=== PATIENT | female | born 1945 | race Native Hawaiian/Other Pacific Islander ===

== ENCOUNTER 2017-11-07 23:11 | Inpatient (IN) | payer MEDICARE ==
[2017-11-07 23:18] VITALS: BMI 27.2
--- NOTE | 2017-11-07 23:45 | CP.PCM.HP ---
History of Present Illness - History of Present Illness History of Present Illness: CC: s/p TKR; concern for infection and thus on IV abx HPI: 72 y/o female with HTH, DM2, and osteoarthritis among other conditions who is now s/p L TKR at [facility] (POD#3). Patient is in TCU because white count at [facility] remained elevated after surgery, and patient is receiving 5 days of IV Abx. Patient has no c/c at this time. No f/c/n/v/d. No CP/SOB. She does have pain at L hip after operation. ROS: 14 systems reviewed, negative other than HPI MHx: HTN, DM2, gout, arthritis, breast cancer (treated with mastectomy), and ovarian cancer (surg) SHx: breast mastectomy 2005, hysterectomy oophorectomy 1998, left TKR (11/05/17) Allergies: NKDA Medications: As per med rec Fam Hx: Brother GA and CVA ~ 50 y/o, niece with Br cancer Social Hx: Lives at home, no tobacco, no EtOH Surrogate: Present on Admission - Present on Admission Any Indicators Present on Admission: No Past Patient History - Past Medical History & Family History Past Medical History?: Yes - Past Social History Smoking Status: Never Smoked - CARDIAC Hx Hypertension: Yes - HEENT Hx HEENT Problems: Yes Hx Cataracts: Yes (BILAT.) - ENDOCRINE/METABOLIC Hx Diabetes Mellitus Type 2: Yes - HEMATOLOGICAL/ONCOLOGICAL Hx Blood Disorders: Yes Hx Cancer: Yes (OVARIAN; BREAST(LEFT)) Hx Chemotherapy: Yes (POST OVARIAN CANCER) - INTEGUMENTARY Hx Dermatological Problems: Yes Other/Comment: HX: LEFT BREAST CANCER-HAD BILAT. MASECTOMY - MUSCULOSKELETAL/RHEUMATOLOGICAL Hx Arthritis: Yes - GASTROINTESTINAL Hx Gastrointestinal Disorders: Yes Hx Gall Bladder Disease: Yes Hx Hemorrhoids: Yes Other/Comment: HX: DIVERTICULOSIS - GENITOURINARY/GYNECOLOGICAL Hx Genitourinary Disorders: Yes Hx Ovarian Cancer: Yes Hx Urinary Tract Infection: Yes (urinec/s positive dr callaway office sts pt placed on antibiotics repeat) Other/Comment: rpeat dip stick of urine 11/[address]h office dr torrez notified office to send results and clearance - PSYCHIATRIC Hx Substance Use: No - SURGICAL HISTORY Hx Surgeries: Yes Hx Cataract Extraction: Yes (BILAT.) Hx Cholecystectomy: Yes Hx Hysterectomy: Yes Hx Mastectomy: Yes (BILATERAL) Hx Orthopedic Surgery: Yes (SPINAL STENOSIS) - ANESTHESIA Hx Anesthesia: Yes Hx Anesthesia Reactions: No Hx Malignant Hyperthermia: No Meds Allergies/Adverse Reactions: Allergies Allergy/AdvReac Type Severity Reaction Status Date / Time No Known Allergies Allergy Verified 08/18/17 07:39 Physical Exam - Constitutional Appears: No Acute Distress - Head Exam Head Exam: ATRAUMATIC, NORMOCEPHALIC - Eye Exam Eye Exam: EOMI, PERRL - ENT Exam ENT Exam: Mucous Membranes Moist - Neck Exam Neck exam: Positive for: Full Rom - Respiratory Exam Respiratory Exam: Clear to Auscultation Bilateral, NORMAL BREATHING PATTERN - Cardiovascular Exam Cardiovascular Exam: REGULAR RHYTHM, +S1, +S2 - GI/Abdominal Exam GI & Abdominal Exam: Normal Bowel Sounds, Soft - Extremities Exam Additional comments: L knee s/p surgery in brace - Neurological Exam Neurological exam: Alert, CN II-XII Intact, Oriented x3 - Psychiatric Exam Psychiatric exam: Normal Affect, Normal Mood - Skin Skin Exam: Dry, Warm Results - Labs Result Diagrams: 11/08/17 05:30 Assessment & Plan (1) Status post total left knee replacement Assessment and Plan: 72 y/o female s/p L TKR with concern for infection because of elevated WC. 1) s/p TKR, Elevated WC -routine post-op care -pain control per scale -Continue ceftriaxone 1 g daily x 5 days IV -Repeat CBC tmrw -PT/OT -Ortho f/u as directed 2) DM2 -Accucheck ACHS, SSI -Cont metformin -DM diet 3) HTN -- Cont home medications 4) DVT PPx -- SQ Lovenox Status: Acute (2) Leukocytosis Status: Acute (3) DM2 (diabetes mellitus, type 2) Status: Acute (4) HTN (hypertension) Status: Acute (5) DVT prophylaxis Status: Acute
[2017-11-08] MEDS: Insulin Lispro (humaLOG) 100 Units/ml Inj SC SCH ×4 (06:32→22:17)
[2017-11-08 07:04] LABS: BASO % 0.4 % (0.0-2.0); EOS # 0.2 K/uL (0.0-0.7); EOS % 1.7 % (0.0-4.0); HEMOGLOBIN 8.8 g/dL (12.0-16.0); LYMPH % 15.5 % (20.0-40.0); MEAN CELL VOLUME 92.2 fl (81.0-99.0); MEAN CORPUSCULAR HGB CONC 33.6 g/dL (33.0-37.0); MEAN PLATELET VOLUME 10.4 fl (7.2-11.7); MONO # 1.3 K/uL (0.0-0.8); MONO % 9.7 % (0.0-10.0); NEUT # 9.4 K/uL (1.8-7.0); NEUT % 72.7 % (50.0-75.0); RBC 2.85 Mil/uL (3.80-5.20); RED CELL DISTRIBUTION WIDTH 14.1 % (11.5-14.5)
[2017-11-08 07:59] VITALS: RESP 20
[2017-11-08] MEDS: Potassium Chloride 20 mEq ER Tab PO SCH (08:15)
[2017-11-08] MEDS: Enoxaparin 40 mg Syringe SC SCH (08:15)
[2017-11-08] MEDS ORDERED: cefTRIAXone IV 1 gm in Dextros 50 ML BAG IVPB SCH (09:00)
[2017-11-08] MEDS ORDERED: cefTRIAXone IV 1 gm in Dextros 50 ML IVPB SCH (09:00)
[2017-11-08] MEDS: Oxycodone/Acetaminophen 5/325 mg Tab PO PRN (09:57)
[2017-11-08] MEDS: cefTRIAXone IV 1 gm in Dextros 50 ML IVPB SCH (16:00)
[2017-11-09] MEDS: Insulin Lispro (humaLOG) 100 Units/ml Inj SC SCH ×4 (07:37→21:46)
[2017-11-09] MEDS: Oxycodone/Acetaminophen 5/325 mg Tab PO PRN ×2 (09:36→14:02)
[2017-11-09] MEDS: Enoxaparin 40 mg Syringe SC SCH (09:37)
[2017-11-09] MEDS: Potassium Chloride 20 mEq ER Tab PO SCH (09:37)
[2017-11-09] MEDS: cefTRIAXone IV 1 gm in Dextros 50 ML IVPB SCH (17:14)
[2017-11-10] MEDS: Insulin Lispro (humaLOG) 100 Units/ml Inj SC SCH ×4 (06:44→21:45)
[2017-11-10] MEDS: Enoxaparin 40 mg Syringe SC SCH (08:35)
[2017-11-10] MEDS: Oxycodone/Acetaminophen 5/325 mg Tab PO PRN ×2 (08:35→14:51)
[2017-11-10] MEDS: Potassium Chloride 20 mEq ER Tab PO SCH (08:36)
[2017-11-10] MEDS: cefTRIAXone IV 1 gm in Dextros 50 ML IVPB SCH (16:40)
[2017-11-11] MEDS: Insulin Lispro (humaLOG) 100 Units/ml Inj SC SCH ×4 (06:56→22:01)
[2017-11-11] MEDS: Enoxaparin 40 mg Syringe SC SCH (08:14)
[2017-11-11] MEDS: Potassium Chloride 20 mEq ER Tab PO SCH (08:15)
[2017-11-11] MEDS ORDERED: Oxycodone/Acetaminophen 5/325 mg Tab PO PRN ×2 (09:03→09:51)
[2017-11-11 11:28] LABS: BASO % 0.2 % (0.0-2.0); EOS # 0.1 K/uL (0.0-0.7); HEMOGLOBIN 8.7 g/dL (12.0-16.0); LYMPH # 1.8 K/uL (1.0-4.3); LYMPH % 13.9 % (20.0-40.0); MEAN CELL VOLUME 93.2 fl (81.0-99.0); MEAN CORPUSCULAR HEMOGLOBIN 31.2 pg (27.0-31.0); MEAN CORPUSCULAR HGB CONC 33.5 g/dL (33.0-37.0); MONO # 1.1 K/uL (0.0-0.8); MONO % 8.1 % (0.0-10.0); NEUT # 10.1 K/uL (1.8-7.0); NEUT % 76.8 % (50.0-75.0); RBC 2.78 Mil/uL (3.80-5.20); RED CELL DISTRIBUTION WIDTH 14.3 % (11.5-14.5); WHITE BLOOD COUNT 13.1 K/uL (4.8-10.8)
[2017-11-11 11:35] LABS: ALB/GLOB RATIO 0.9 (1.0-2.1); ALBUMIN 3.4 g/dL (3.5-5.0); ALT/SGPT 84 U/L (9-52); AST/SGOT 94 U/L (14-36); BLOOD UREA NITROGEN 19 mg/dl (7-17); CALCIUM 8.4 mg/dL (8.4-10.2); GFR AFRICAN-AMERICAN > 60; GFR NON-AFRICAN AMERICAN > 60
[2017-11-11 13:49] LABS: SQUAMOUS EPITHIAL 5 /hpf (0-5); URINE BACTERIA RARE (<OCC); URINE BILIRUBIN NEGATIVE (NEGATIVE); URINE BLOOD NEGATIVE (NEGATIVE); URINE CLARITY SLIGHTY-CLOUDY (Clear); URINE COLOR YELLOW (YELLOW); URINE GLUCOSE (UA) NEG (Normal); URINE HYALINE CAST 0-2 /hpf (0-2); URINE LEUKOCYTE ESTERASE NEG Leu/uL (Negative); URINE NITRATE NEGATIVE (NEGATIVE); URINE PROTEIN NEGATIVE (NEGATIVE); URINE UROBILINOGEN 0.2-1.0 mg/dL (0.2-1.0)
--- NOTE | 2017-11-11 14:36 | CP.PCM.CON ---
History of Present Illness - History of Present Illness History of Present Illness: 72 year old female with Left total knee replacemnt admitted for TCU with HTN, DM, arthritis, and breast CA Review of Systems - Musculoskeletal Musculoskeletal: Abnormal Gait, Limited Range of Motion Past Patient History - Past Medical History & Family History Past Medical History?: Yes - Past Social History Smoking Status: Never Smoked - CARDIAC Hx Hypertension: Yes - HEENT Hx HEENT Problems: Yes Hx Cataracts: Yes (BILAT.) - ENDOCRINE/METABOLIC Hx Diabetes Mellitus Type 2: Yes (spinal stenosis) - HEMATOLOGICAL/ONCOLOGICAL Hx Blood Disorders: Yes Hx Cancer: Yes (OVARIAN; BREAST(LEFT)) Hx Chemotherapy: Yes (POST OVARIAN CANCER) - INTEGUMENTARY Hx Dermatological Problems: Yes Other/Comment: HX: LEFT BREAST CANCER-HAD BILAT. MASECTOMY - MUSCULOSKELETAL/RHEUMATOLOGICAL Hx Arthritis: Yes - GASTROINTESTINAL Hx Gastrointestinal Disorders: Yes Hx Gall Bladder Disease: Yes Hx Hemorrhoids: Yes Other/Comment: HX: DIVERTICULOSIS - GENITOURINARY/GYNECOLOGICAL Hx Genitourinary Disorders: Yes Hx Ovarian Cancer: Yes Hx Urinary Tract Infection: Yes (urinec/s positive dr callaway office sts pt placed on antibiotics repeat) Other/Comment: rpeat dip stick of urine 11/[address]h office dr torrez notified office to send results and clearance - PSYCHIATRIC Hx Substance Use: No - SURGICAL HISTORY Hx Surgeries: Yes Hx Cataract Extraction: Yes (BILAT.) Hx Cholecystectomy: Yes Hx Hysterectomy: Yes Hx Mastectomy: Yes (BILATERAL) Hx Orthopedic Surgery: Yes (SPINAL STENOSIS) - ANESTHESIA Hx Anesthesia: Yes Hx Anesthesia Reactions: No Hx Malignant Hyperthermia: No Meds Allergies/Adverse Reactions: Allergies Allergy/AdvReac Type Severity Reaction Status Date / Time No Known Allergies Allergy Verified 08/18/17 07:39 - Medications Medications: Current Medications Acetaminophen (Tylenol 325mg Tab) 650 mg PO Q4 PRN PRN Reason: Fever 101 degrees fahrenheit Allopurinol (Zyloprim) 300 mg PO DAILY [facility] Last Admin: 11/11/17 08:15 Dose: 300 mg Atorvastatin Calcium (Lipitor) 10 mg PO DAILY@2100 [facility] Last Admin: 11/10/17 21:45 Dose: 10 mg Docusate Sodium (Colace) 100 mg PO TID [facility] Last Admin: 11/11/17 12:39 Dose: 100 mg Famotidine (Pepcid) 20 mg PO BID [facility] Last Admin: 11/11/17 08:15 Dose: 20 mg Ceftriaxone Sodium (Rocephin Iv 1 Gm Duplex) 50 mls @ 50 mls/hr IVPB DAILY@ 1700 [facility] Last Admin: 11/10/17 16:40 Dose: 50 mls/hr Insulin Human Lispro (Humalog) 0 units SC ACHS [facility] PRN Reason: Protocol Last Admin: 11/11/17 11:48 Dose: Not Given Lactulose (Enulose) 20 gm PO BID PRN PRN Reason: Constipation Last Admin: 11/08/17 13:30 Dose: 20 gm Losartan Potassium (Cozaar) 25 mg PO DAILY [facility] Last Admin: 11/11/17 08:14 Dose: 25 mg Metformin HCl (Glucophage) 500 mg PO DAILY [facility] Last Admin: 11/11/17 08:15 Dose: 500 mg Oxycodone/Acetaminophen (Percocet 5/325 Mg Tab) 1 tab PO Q4 PRN PRN Reason: Pain, moderate (4-7) Stop: 11/14/17 09:04 Oxycodone/Acetaminophen (Percocet 5/325 Mg Tab) 2 tab PO Q4 PRN PRN Reason: Pain, severe (8-10) Stop: 11/14/17 09:52 Last Admin: 11/11/17 10:11 Dose: 2 tab Potassium Chloride (K-Dur 20 Meq Er Tab) 40 meq PO DAILY [facility] Last Admin: 11/11/17 08:15 Dose: 40 meq Physical Exam - Head Exam Head Exam: ATRAUMATIC, NORMAL INSPECTION, NORMOCEPHALIC - Eye Exam Eye Exam: EOMI, Normal appearance, PERRL Pupil Exam: NORMAL ACCOMODATION - ENT Exam ENT Exam: Mucous Membranes Moist, Normal Exam - Neck Exam Neck exam: Positive for: Normal Inspection - Respiratory Exam Respiratory Exam: NORMAL BREATHING PATTERN - Cardiovascular Exam Cardiovascular Exam: REGULAR RHYTHM - GI/Abdominal Exam GI & Abdominal Exam: Normal Bowel Sounds - Rectal Exam Rectal Exam: NORMAL INSPECTION - Exam External exam: NORMAL EXTERNAL EXAM - Extremities Exam Extremities exam: Positive for: normal inspection - Back Exam Back exam: NORMAL INSPECTION - Neurological Exam Neurological exam: Alert, CN II-XII Intact Additional comments: left leg weakness - Psychiatric Exam Psychiatric exam: Normal Affect, Normal Mood - Skin Skin Exam: Dry, Intact Results - Vital Signs Recent Vital Signs: Last Vital Signs Temp 99.7 F H 11/11/17 08:48 Pulse 103 H 11/11/17 08:48 Resp 20 11/11/17 08:48 BP 125/65 11/11/17 08:48 Pulse Ox 97 11/11/17 08:48 - Labs Result Diagrams: 11/11/17 10:42 11/11/17 10:42 Labs: Laboratory Results - last 24 hr 11/10/17 11/10/17 11/11/17 16:13 20:47 06:23 WBC RBC Hgb Hct MCV MCH MCHC RDW Plt Count MPV Neut % (Auto) Lymph % (Auto) [place] % (Auto) Eos % (Auto) Baso % (Auto) Neut # (Auto) Lymph # (Auto) [place] # (Auto) Eos # (Auto) Baso # (Auto) Sodium Potassium Chloride Carbon Dioxide Anion Gap BUN Creatinine Est GFR ( Amer) Est GFR (Non-Af Amer) POC Glucose (mg/dL) 109 142 H 127 H Random Glucose Calcium Total Bilirubin AST ALT Alkaline Phosphatase Total Protein Albumin Globulin Albumin/Globulin Ratio Urine Color Urine Clarity Urine pH Ur Specific [place] Urine Protein Urine Glucose (UA) Urine Ketones Urine Blood Urine Nitrate Urine Bilirubin Urine Urobilinogen Ur Leukocyte Esterase Urine RBC (Auto) Urine Microscopic WBC Ur Squamous Epith Cells Urine Bacteria Hyaline Casts 11/11/17 11/11/17 11/11/17 10:42 10:42 10:59 WBC 13.1 H RBC 2.78 L Hgb 8.7 L Hct 25.9 L MCV 93.2 MCH 31.2 H MCHC 33.5 RDW 14.3 Plt Count 249 D MPV 9.0 Neut % (Auto) 76.8 H Lymph % (Auto) 13.9 L [place] % (Auto) 8.1 Eos % (Auto) 1.0 Baso % (Auto) 0.2 Neut # (Auto) 10.1 H Lymph # (Auto) 1.8 [place] # (Auto) 1.1 H Eos # (Auto) 0.1 Baso # (Auto) 0.0 Sodium 137 Potassium 4.9 Chloride 99 Carbon Dioxide 30 Anion Gap 13 BUN 19 H Creatinine 0.9 Est GFR ( Amer) > 60 Est GFR (Non-Af Amer) > 60 POC Glucose (mg/dL) 121 H Random Glucose 110 H Calcium 8.4 Total Bilirubin 0.8 AST 94 H D ALT 84 H Alkaline Phosphatase 102 Total Protein 7.2 Albumin 3.4 L Globulin 3.8 Albumin/Globulin Ratio 0.9 L Urine Color Urine Clarity Urine pH Ur Specific [place] Urine Protein Urine Glucose (UA) Urine Ketones Urine Blood Urine Nitrate Urine Bilirubin Urine Urobilinogen Ur Leukocyte Esterase Urine RBC (Auto) Urine Microscopic WBC Ur Squamous Epith Cells Urine Bacteria Hyaline Casts 11/11/17 13:20 WBC RBC Hgb Hct MCV MCH MCHC RDW Plt Count MPV Neut % (Auto) Lymph % (Auto) [place] % (Auto) Eos % (Auto) Baso % (Auto) Neut # (Auto) Lymph # (Auto) [place] # (Auto) Eos # (Auto) Baso # (Auto) Sodium Potassium Chloride Carbon Dioxide Anion Gap BUN Creatinine Est GFR ( Amer) Est GFR (Non-Af Amer) POC Glucose (mg/dL) Random Glucose Calcium Total Bilirubin AST ALT Alkaline Phosphatase Total Protein Albumin Globulin Albumin/Globulin Ratio Urine Color Yellow Urine Clarity Slighty-cloudy Urine pH 6.0 Ur Specific [place] 1.011 Urine Protein Negative Urine Glucose (UA) Neg Urine Ketones Negative Urine Blood Negative Urine Nitrate Negative Urine Bilirubin Negative Urine Urobilinogen 0.2-1.0 Ur Leukocyte Esterase Neg Urine RBC (Auto) 3 Urine Microscopic WBC 4 Ur Squamous Epith Cells 5 Urine Bacteria Rare Hyaline Casts 0-2 Assessment & Plan (1) DM2 (diabetes mellitus, type 2) Status: Acute (2) DVT prophylaxis Status: Acute (3) HTN (hypertension) Status: Acute (4) History of gout Status: Acute (5) Leukocytosis Status: Acute (6) Status post total left knee replacement Assessment and Plan: plan for Physical, occupational therapy range of motion, strenghtening, transfers and gait training Status: Acute (7) History of diabetes mellitus Status: Chronic (8) History of hypertension Status: Chronic
--- NOTE | 2017-11-11 14:41 | CP.PCM.PN ---
Subjective - Date & Time of Evaluation Date of Evaluation: 11/10/17 Time of Evaluation: 13:00 - Subjective Subjective: no acute complaints at present Objective - Vital Signs/Intake and Output Vital Signs (last 24 hours): Temp Pulse Resp BP Pulse Ox 99.7 F H 103 H 20 125/65 97 11/11/17 08:48 11/11/17 08:48 11/11/17 08:48 11/11/17 08:48 11/11/17 08:48 - Medications Medications: Current Medications Acetaminophen (Tylenol 325mg Tab) 650 mg PO Q4 PRN PRN Reason: Fever 101 degrees fahrenheit Allopurinol (Zyloprim) 300 mg PO DAILY [facility] Last Admin: 11/11/17 08:15 Dose: 300 mg Atorvastatin Calcium (Lipitor) 10 mg PO DAILY@2100 [facility] Last Admin: 11/10/17 21:45 Dose: 10 mg Docusate Sodium (Colace) 100 mg PO TID [facility] Last Admin: 11/11/17 12:39 Dose: 100 mg Famotidine (Pepcid) 20 mg PO BID [facility] Last Admin: 11/11/17 08:15 Dose: 20 mg Ceftriaxone Sodium (Rocephin Iv 1 Gm Duplex) 50 mls @ 50 mls/hr IVPB DAILY@ 1700 [facility] Last Admin: 11/10/17 16:40 Dose: 50 mls/hr Insulin Human Lispro (Humalog) 0 units SC ACHS [facility] PRN Reason: Protocol Last Admin: 11/11/17 11:48 Dose: Not Given Lactulose (Enulose) 20 gm PO BID PRN PRN Reason: Constipation Last Admin: 11/08/17 13:30 Dose: 20 gm Losartan Potassium (Cozaar) 25 mg PO DAILY [facility] Last Admin: 11/11/17 08:14 Dose: 25 mg Metformin HCl (Glucophage) 500 mg PO DAILY [facility] Last Admin: 11/11/17 08:15 Dose: 500 mg Oxycodone/Acetaminophen (Percocet 5/325 Mg Tab) 1 tab PO Q4 PRN PRN Reason: Pain, moderate (4-7) Stop: 11/14/17 09:04 Oxycodone/Acetaminophen (Percocet 5/325 Mg Tab) 2 tab PO Q4 PRN PRN Reason: Pain, severe (8-10) Stop: 11/14/17 09:52 Last Admin: 11/11/17 10:11 Dose: 2 tab Potassium Chloride (K-Dur 20 Meq Er Tab) 40 meq PO DAILY [facility] Last Admin: 11/11/17 08:15 Dose: 40 meq - Labs Labs: 11/11/17 10:42 11/11/17 10:42 - Head Exam Head Exam: ATRAUMATIC, NORMAL INSPECTION, NORMOCEPHALIC - Eye Exam Eye Exam: EOMI, Normal appearance, PERRL Pupil Exam: NORMAL ACCOMODATION - ENT Exam ENT Exam: Mucous Membranes Moist, Normal Exam - Neck Exam Neck Exam: Normal Inspection - Respiratory Exam Respiratory Exam: NORMAL BREATHING PATTERN - Cardiovascular Exam Cardiovascular Exam: REGULAR RHYTHM - GI/Abdominal Exam GI & Abdominal Exam: Normal Bowel Sounds - Rectal Exam Rectal Exam: NORMAL INSPECTION - Exam External exam: NORMAL EXTERNAL EXAM - Extremities Exam Extremities Exam: Full ROM, Normal Capillary Refill - Back Exam Back Exam: NORMAL INSPECTION - Neurological Exam Neurological Exam: Alert, Awake Neuro motor strength exam: Left Upper Extremity: 4, Right Upper Extremity: 4, Left Lower Extremity: 3, Right Lower Extremity: 4 - Psychiatric Exam Psychiatric exam: Normal Affect, Normal Mood - Skin Skin Exam: Dry, Intact Assessment and Plan (1) DM2 (diabetes mellitus, type 2) Status: Acute (2) DVT prophylaxis Status: Acute (3) HTN (hypertension) Status: Acute (4) History of gout Status: Acute (5) Leukocytosis Status: Acute (6) Status post total left knee replacement Assessment & Plan: quariceps strenghtening transfers and gait to improve strenght and balance Status: Acute (7) History of diabetes mellitus Status: Chronic (8) History of hypertension Status: Chronic
--- NOTE | 2017-11-11 14:43 | CP.PCM.PN ---
Subjective - Date & Time of Evaluation Date of Evaluation: 11/11/17 Time of Evaluation: 09:00 - Subjective Subjective: no acute knee pain Objective - Vital Signs/Intake and Output Vital Signs (last 24 hours): Temp Pulse Resp BP Pulse Ox 99.7 F H 103 H 20 125/65 97 11/11/17 08:48 11/11/17 08:48 11/11/17 08:48 11/11/17 08:48 11/11/17 08:48 - Medications Medications: Current Medications Acetaminophen (Tylenol 325mg Tab) 650 mg PO Q4 PRN PRN Reason: Fever 101 degrees fahrenheit Allopurinol (Zyloprim) 300 mg PO DAILY [facility] Last Admin: 11/11/17 08:15 Dose: 300 mg Atorvastatin Calcium (Lipitor) 10 mg PO DAILY@2100 [facility] Last Admin: 11/10/17 21:45 Dose: 10 mg Docusate Sodium (Colace) 100 mg PO TID [facility] Last Admin: 11/11/17 12:39 Dose: 100 mg Famotidine (Pepcid) 20 mg PO BID [facility] Last Admin: 11/11/17 08:15 Dose: 20 mg Ceftriaxone Sodium (Rocephin Iv 1 Gm Duplex) 50 mls @ 50 mls/hr IVPB DAILY@ 1700 [facility] Last Admin: 11/10/17 16:40 Dose: 50 mls/hr Insulin Human Lispro (Humalog) 0 units SC ACHS [facility] PRN Reason: Protocol Last Admin: 11/11/17 11:48 Dose: Not Given Lactulose (Enulose) 20 gm PO BID PRN PRN Reason: Constipation Last Admin: 11/08/17 13:30 Dose: 20 gm Losartan Potassium (Cozaar) 25 mg PO DAILY [facility] Last Admin: 11/11/17 08:14 Dose: 25 mg Metformin HCl (Glucophage) 500 mg PO DAILY [facility] Last Admin: 11/11/17 08:15 Dose: 500 mg Oxycodone/Acetaminophen (Percocet 5/325 Mg Tab) 1 tab PO Q4 PRN PRN Reason: Pain, moderate (4-7) Stop: 11/14/17 09:04 Oxycodone/Acetaminophen (Percocet 5/325 Mg Tab) 2 tab PO Q4 PRN PRN Reason: Pain, severe (8-10) Stop: 11/14/17 09:52 Last Admin: 11/11/17 10:11 Dose: 2 tab Potassium Chloride (K-Dur 20 Meq Er Tab) 40 meq PO DAILY [facility] Last Admin: 11/11/17 08:15 Dose: 40 meq - Labs Labs: 11/11/17 10:42 11/11/17 10:42 - Head Exam Head Exam: ATRAUMATIC - Eye Exam Eye Exam: EOMI, Normal appearance, PERRL Pupil Exam: NORMAL ACCOMODATION - ENT Exam ENT Exam: Mucous Membranes Moist, Normal Exam - Neck Exam Neck Exam: Full ROM, Normal Inspection - Respiratory Exam Respiratory Exam: Clear to Ausculation Bilateral, NORMAL BREATHING PATTERN - Cardiovascular Exam Cardiovascular Exam: REGULAR RHYTHM - GI/Abdominal Exam GI & Abdominal Exam: Soft, Normal Bowel Sounds - Rectal Exam Rectal Exam: NORMAL INSPECTION - Exam External exam: NORMAL EXTERNAL EXAM - Extremities Exam Extremities Exam: Full ROM, Normal Capillary Refill, Normal Inspection - Back Exam Back Exam: NORMAL INSPECTION - Neurological Exam Neurological Exam: Alert, Awake, Normal Gait Neuro motor strength exam: Left Upper Extremity: 4, Right Upper Extremity: 4, Left Lower Extremity: 3, Right Lower Extremity: 4 - Psychiatric Exam Psychiatric exam: Normal Affect, Normal Mood - Skin Skin Exam: Dry, Intact Assessment and Plan (1) DM2 (diabetes mellitus, type 2) Status: Acute (2) DVT prophylaxis Status: Acute (3) HTN (hypertension) Status: Acute (4) History of gout Status: Acute (5) Leukocytosis Status: Acute (6) Status post total left knee replacement Assessment & Plan: plan for physical, occupational therapy CPM yvette wrap to the knee Status: Acute (7) History of diabetes mellitus Status: Chronic (8) History of hypertension Status: Chronic
[2017-11-11] MEDS: cefTRIAXone IV 1 gm in Dextros 50 ML IVPB SCH (16:49)
--- NOTE | 2017-11-11 17:04 | CP.PCM.PN ---
Subjective - Date & Time of Evaluation Date of Evaluation: 11/11/17 Time of Evaluation: 11:00 - Subjective Subjective: Pt seen and examined. Complained of feeling dizzy when getting up. Objective - Vital Signs/Intake and Output Vital Signs (last 24 hours): Temp Pulse Resp BP Pulse Ox 97.5 F L 96 H 20 97/56 L 98 11/11/17 16:12 11/11/17 16:12 11/11/17 16:12 11/11/17 16:12 11/11/17 16:12 - Medications Medications: Current Medications Acetaminophen (Tylenol 325mg Tab) 650 mg PO Q4 PRN PRN Reason: Fever 101 degrees fahrenheit Allopurinol (Zyloprim) 300 mg PO DAILY [facility] Last Admin: 11/11/17 08:15 Dose: 300 mg Atorvastatin Calcium (Lipitor) 10 mg PO DAILY@2100 [facility] Last Admin: 11/10/17 21:45 Dose: 10 mg Docusate Sodium (Colace) 100 mg PO TID [facility] Last Admin: 11/11/17 16:49 Dose: 100 mg Famotidine (Pepcid) 20 mg PO BID [facility] Last Admin: 11/11/17 16:49 Dose: 20 mg Ceftriaxone Sodium (Rocephin Iv 1 Gm Duplex) 50 mls @ 50 mls/hr IVPB DAILY@ 1700 [facility] Last Admin: 11/11/17 16:49 Dose: 50 mls/hr Insulin Human Lispro (Humalog) 0 units SC ACHS [facility] PRN Reason: Protocol Last Admin: 11/11/17 16:23 Dose: Not Given Lactulose (Enulose) 20 gm PO BID PRN PRN Reason: Constipation Last Admin: 11/08/17 13:30 Dose: 20 gm Losartan Potassium (Cozaar) 25 mg PO DAILY [facility] Last Admin: 11/11/17 08:14 Dose: 25 mg Metformin HCl (Glucophage) 500 mg PO DAILY [facility] Last Admin: 11/11/17 08:15 Dose: 500 mg Oxycodone/Acetaminophen (Percocet 5/325 Mg Tab) 1 tab PO Q4 PRN PRN Reason: Pain, moderate (4-7) Stop: 11/14/17 09:04 Oxycodone/Acetaminophen (Percocet 5/325 Mg Tab) 2 tab PO Q4 PRN PRN Reason: Pain, severe (8-10) Stop: 11/14/17 09:52 Last Admin: 11/11/17 10:11 Dose: 2 tab Potassium Chloride (K-Dur 20 Meq Er Tab) 40 meq PO DAILY [facility] Last Admin: 11/11/17 08:15 Dose: 40 meq - Labs Labs: 11/11/17 10:42 11/11/17 10:42 - Constitutional Appears: No Acute Distress - Head Exam Head Exam: ATRAUMATIC - Eye Exam Eye Exam: absent: Scleral icterus - ENT Exam ENT Exam: Mucous Membranes Moist - Neck Exam Neck Exam: absent: Meningismus - Respiratory Exam Respiratory Exam: absent: Rhonchi, Wheezes, Respiratory Distress - Cardiovascular Exam Cardiovascular Exam: REGULAR RHYTHM, +S1, +S2 - GI/Abdominal Exam GI & Abdominal Exam: Soft. absent: Tenderness - Rectal Exam Rectal Exam: Deferred - Back Exam Back Exam: absent: tenderness - Neurological Exam Neurological Exam: Alert, Oriented x3 - Psychiatric Exam Psychiatric exam: Normal Affect - Skin Skin Exam: Dry, Intact Assessment and Plan - Assessment and Plan (Free Text) Assessment: 72 female with history of DM2, HTN, Breast Ca and Ovarian Ca had left TKR at [facility] [place] on 11/05/2017 after failing conservative management of arthritis of the left knee. She was empirically treated with IV Rocephin because of the persistent elevation of the WBC although it was greatly reduced and patient was asymptomatic. 1. Post left TKR POD# 6 wound on left knee clean without sign of inflammation pain very tolerable continue PT/OT 2. Postural Hypotension monitor BP hold therapy when symptomatic or SBP below 100 DC Losartan 3. Leukocytosis repeat blood culture continue Rocephin urinalysis 4. Elevated LFTs liver sonogram hepatitis profile in am DC statin 5. DM2 BS controlled continue low dose Metformin 6. HTN BP on the low side Losartan DC
--- NOTE | 2017-11-11 17:11 | CARD ---
APPROVED REPORT EKG Measurement Heart [id number] <Conclusion> Normal sinus rhythm Normal ECG
[2017-11-12 06:29] LABS: BASO % 0.4 % (0.0-2.0); EOS # 0.3 K/uL (0.0-0.7); EOS % 2.9 % (0.0-4.0); HEMOGLOBIN 8.3 g/dL (12.0-16.0); LYMPH # 2.1 K/uL (1.0-4.3); LYMPH % 18.8 % (20.0-40.0); MEAN CELL VOLUME 92.8 fl (81.0-99.0); MEAN CORPUSCULAR HEMOGLOBIN 30.6 pg (27.0-31.0); MEAN PLATELET VOLUME 9.2 fl (7.2-11.7); MONO # 1.1 K/uL (0.0-0.8); MONO % 10.4 % (0.0-10.0); NEUT # 7.4 K/uL (1.8-7.0); NEUT % 67.5 % (50.0-75.0); RBC 2.71 Mil/uL (3.80-5.20); RED CELL DISTRIBUTION WIDTH 14.3 % (11.5-14.5)
[2017-11-12] MEDS: Insulin Lispro (humaLOG) 100 Units/ml Inj SC SCH ×4 (08:01→21:54)
[2017-11-12] MEDS: Enoxaparin 40 mg Syringe SC SCH (10:14)
[2017-11-12] MEDS: Potassium Chloride 20 mEq ER Tab PO SCH (10:14)
--- NOTE | 2017-11-12 12:49 | CP.PCM.PN ---
Subjective - Date & Time of Evaluation Date of Evaluation: 11/12/17 Time of Evaluation: 10:30 - Subjective Subjective: no acute complaints Objective - Vital Signs/Intake and Output Vital Signs (last 24 hours): Temp Pulse Resp BP Pulse Ox 98.1 F 105 H 20 120/62 98 11/12/17 08:02 11/12/17 08:02 11/12/17 08:02 11/12/17 08:02 11/12/17 08:02 - Medications Medications: Current Medications Acetaminophen (Tylenol 325mg Tab) 650 mg PO Q4 PRN PRN Reason: Fever 101 degrees fahrenheit Allopurinol (Zyloprim) 300 mg PO DAILY [facility] Last Admin: 11/12/17 10:14 Dose: 300 mg Docusate Sodium (Colace) 100 mg PO TID [facility] Last Admin: 11/12/17 10:15 Dose: 100 mg Enoxaparin Sodium (Lovenox) 40 mg SC DAILY [facility] PRN Reason: Protocol Last Admin: 11/12/17 10:14 Dose: 40 mg Famotidine (Pepcid) 20 mg PO BID [facility] Last Admin: 11/12/17 10:14 Dose: 20 mg Ceftriaxone Sodium (Rocephin Iv 1 Gm Duplex) 50 mls @ 50 mls/hr IVPB DAILY@ 1700 [facility] Last Admin: 11/11/17 16:49 Dose: 50 mls/hr Insulin Human Lispro (Humalog) 0 units SC ACHS [facility] PRN Reason: Protocol Last Admin: 11/12/17 08:01 Dose: Not Given Lactulose (Enulose) 20 gm PO BID PRN PRN Reason: Constipation Last Admin: 11/08/17 13:30 Dose: 20 gm Metformin HCl (Glucophage) 500 mg PO DAILY [facility] Last Admin: 11/12/17 10:15 Dose: 500 mg Oxycodone/Acetaminophen (Percocet 5/325 Mg Tab) 1 tab PO Q4 PRN PRN Reason: Pain, moderate (4-7) Stop: 11/14/17 09:04 Oxycodone/Acetaminophen (Percocet 5/325 Mg Tab) 2 tab PO Q4 PRN PRN Reason: Pain, severe (8-10) Stop: 11/14/17 09:52 Last Admin: 11/11/17 10:11 Dose: 2 tab Potassium Chloride (K-Dur 20 Meq Er Tab) 40 meq PO DAILY [facility] Last Admin: 11/12/17 10:14 Dose: 40 meq - Labs Labs: 11/12/17 05:40 11/11/17 10:42 - Head Exam Head Exam: ATRAUMATIC, NORMAL INSPECTION, NORMOCEPHALIC - Eye Exam Eye Exam: EOMI, Normal appearance, PERRL Pupil Exam: NORMAL ACCOMODATION - ENT Exam ENT Exam: Mucous Membranes Moist, Normal Exam - Neck Exam Neck Exam: Full ROM, Normal Inspection - Respiratory Exam Respiratory Exam: NORMAL BREATHING PATTERN - Cardiovascular Exam Cardiovascular Exam: REGULAR RHYTHM - GI/Abdominal Exam GI & Abdominal Exam: Soft, Normal Bowel Sounds - Rectal Exam Rectal Exam: NORMAL INSPECTION - Exam Exam: NORMAL INSPECTION - Extremities Exam Extremities Exam: Full ROM, Normal Capillary Refill - Back Exam Back Exam: NORMAL INSPECTION - Neurological Exam Neurological Exam: Alert, Awake Neuro motor strength exam: Left Upper Extremity: 4, Right Upper Extremity: 4, Left Lower Extremity: 3, Right Lower Extremity: 4 - Psychiatric Exam Psychiatric exam: Normal Affect, Normal Mood - Skin Skin Exam: Dry, Intact Assessment and Plan (1) DM2 (diabetes mellitus, type 2) Status: Acute (2) DVT prophylaxis Status: Acute (3) HTN (hypertension) Status: Acute (4) History of gout Status: Acute (5) Leukocytosis Status: Acute (6) Status post total left knee replacement Assessment & Plan: plan for physical, occupational therapy Status: Acute (7) History of diabetes mellitus Status: Chronic (8) History of hypertension Status: Chronic
[2017-11-12 13:02] LABS: HEPATITIS B SURFACE AG Negative (NEGATIVE)
[2017-11-12 13:08] LABS: HEPATITIS B CORE AB NEGATIVE (NEGATIVE)
[2017-11-12 13:19] LABS: HEPATITIS C ANTIBODY NEGATIVE (NEGATIVE)
[2017-11-12 13:21] LABS: HEPATITIS A IGM NEGATIVE (NEGATIVE)
--- NOTE | 2017-11-12 14:43 | CP.PCM.PN ---
Subjective - Date & Time of Evaluation Date of Evaluation: 11/12/17 Time of Evaluation: 14:41 - Subjective Subjective: Patient states pain is well controlled. She is able to use walker independently to bathroom. Tolerating PT well. No new complaints. Objective - Vital Signs/Intake and Output Vital Signs (last 24 hours): Temp Pulse Resp BP Pulse Ox 98.1 F 105 H 20 120/62 98 11/12/17 08:02 11/12/17 08:02 11/12/17 08:02 11/12/17 08:02 11/12/17 08:02 - Medications Medications: Current Medications Acetaminophen (Tylenol 325mg Tab) 650 mg PO Q4 PRN PRN Reason: Fever 101 degrees fahrenheit Allopurinol (Zyloprim) 300 mg PO DAILY [facility] Last Admin: 11/12/17 10:14 Dose: 300 mg Docusate Sodium (Colace) 100 mg PO TID [facility] Last Admin: 11/12/17 12:57 Dose: Not Given Enoxaparin Sodium (Lovenox) 40 mg SC DAILY [facility] PRN Reason: Protocol Last Admin: 11/12/17 10:14 Dose: 40 mg Famotidine (Pepcid) 20 mg PO BID [facility] Last Admin: 11/12/17 10:14 Dose: 20 mg Ceftriaxone Sodium (Rocephin Iv 1 Gm Duplex) 50 mls @ 50 mls/hr IVPB DAILY@ 1700 [facility] Last Admin: 11/11/17 16:49 Dose: 50 mls/hr Insulin Human Lispro (Humalog) 0 units SC ACHS [facility] PRN Reason: Protocol Last Admin: 11/12/17 11:45 Dose: 3 units Lactulose (Enulose) 20 gm PO BID PRN PRN Reason: Constipation Last Admin: 11/08/17 13:30 Dose: 20 gm Metformin HCl (Glucophage) 500 mg PO DAILY [facility] Last Admin: 11/12/17 10:15 Dose: 500 mg Oxycodone/Acetaminophen (Percocet 5/325 Mg Tab) 1 tab PO Q4 PRN PRN Reason: Pain, moderate (4-7) Stop: 11/14/17 09:04 Oxycodone/Acetaminophen (Percocet 5/325 Mg Tab) 2 tab PO Q4 PRN PRN Reason: Pain, severe (8-10) Stop: 11/14/17 09:52 Last Admin: 11/11/17 10:11 Dose: 2 tab Potassium Chloride (K-Dur 20 Meq Er Tab) 40 meq PO DAILY [facility] Last Admin: 11/12/17 10:14 Dose: 40 meq - Labs Labs: 11/12/17 05:40 11/11/17 10:42 - Extremities Exam Additional comments: Dressing changed. +swelling and ecchymosis to knee, ioncision intact, dry, no erythema. +ROM ankle/toes, sensation intact, encouraged extension of knee, calves soft NT neg homans +DP/PT pulses Assessment and Plan (1) Status post total left knee replacement Assessment & Plan: POD#7 s/p left TKR cont PT/OT VTE proph dressing changes d/w Dr. Hoyt, agrees with above Status: Acute
[2017-11-12] MEDS: cefTRIAXone IV 1 gm in Dextros 50 ML IVPB SCH (17:40)
[2017-11-13 06:44] LABS: HEMOGLOBIN 8.4 g/dL (12.0-16.0); MEAN CELL VOLUME 93.1 fl (81.0-99.0); MEAN CORPUSCULAR HEMOGLOBIN 31.2 pg (27.0-31.0); MEAN CORPUSCULAR HGB CONC 33.5 g/dL (33.0-37.0); RBC 2.7 Mil/uL (3.80-5.20); RED CELL DISTRIBUTION WIDTH 14.4 % (11.5-14.5); WHITE BLOOD COUNT 10.9 K/uL (4.8-10.8)
[2017-11-13] MEDS: Insulin Lispro (humaLOG) 100 Units/ml Inj SC SCH ×4 (07:33→21:30)
[2017-11-13] MEDS: Potassium Chloride 20 mEq ER Tab PO SCH (08:15)
[2017-11-13] MEDS: Enoxaparin 40 mg Syringe SC SCH (08:15)
--- NOTE | 2017-11-13 13:03 | CP.PCM.PN ---
Subjective - Date & Time of Evaluation Date of Evaluation: 11/13/17 Time of Evaluation: 13:01 - Subjective Subjective: pt doing well no complaints participating in PT well HD stable NAD Objective - Vital Signs/Intake and Output Vital Signs (last 24 hours): Temp Pulse Resp BP Pulse Ox 98.1 F 98 H 20 125/61 99 11/13/17 08:05 11/13/17 10:22 11/13/17 08:05 11/13/17 08:05 11/13/17 08:05 Vitals Reviewed GEN: WDWN, ALERT, COOPERATIVE HEENT: NCAT, PERRL, EOMI HEART: RRR, +S1S2, NO MRG LUNG: CTAB, NO WRR ABD: SOFT, NT, ND, NO HSM, NO MASSES EXT: NORMAL PEDAL PULSES, GOOD CAPILLARY REFILL NEURO: AAOX3 SKIN: WARM, DRY PSYCH: NORMAL MOOD, NORMAL AFFECT - Medications Medications: Current Medications Acetaminophen (Tylenol 325mg Tab) 650 mg PO Q4 PRN PRN Reason: Fever 101 degrees fahrenheit Allopurinol (Zyloprim) 300 mg PO DAILY [facility] Last Admin: 11/13/17 08:15 Dose: 300 mg Docusate Sodium (Colace) 100 mg PO TID [facility] Last Admin: 11/13/17 12:14 Dose: Not Given Enoxaparin Sodium (Lovenox) 40 mg SC DAILY [facility] PRN Reason: Protocol Last Admin: 11/13/17 08:15 Dose: 40 mg Famotidine (Pepcid) 20 mg PO BID [facility] Last Admin: 11/13/17 08:15 Dose: 20 mg Insulin Human Lispro (Humalog) 0 units SC [facility] PRN Reason: Protocol Last Admin: 11/13/17 10:59 Dose: Not Given Lactulose (Enulose) 20 gm PO BID PRN PRN Reason: Constipation Last Admin: 11/08/17 13:30 Dose: 20 gm Metformin HCl (Glucophage) 500 mg PO DAILY [facility] Last Admin: 11/13/17 08:15 Dose: 500 mg Oxycodone/Acetaminophen (Percocet 5/325 Mg Tab) 1 tab PO Q4 PRN PRN Reason: Pain, moderate (4-7) Stop: 11/14/17 09:04 Oxycodone/Acetaminophen (Percocet 5/325 Mg Tab) 2 tab PO Q4 PRN PRN Reason: Pain, severe (8-10) Stop: 11/14/17 09:52 Last Admin: 11/11/17 10:11 Dose: 2 tab Potassium Chloride (K-Dur 20 Meq Er Tab) 40 meq PO DAILY [facility] Last Admin: 11/13/17 08:15 Dose: 40 meq - Labs Labs: 11/13/17 06:10 11/11/17 10:42 Assessment and Plan - Assessment and Plan (Free Text) Plan: 72 female with history of DM2, HTN, Breast Ca and Ovarian Ca had left TKR at [facility] on 11/05/2017 after failing conservative management of arthritis of the left knee. She was empirically treated with IV Rocephin because of the persistent elevation of the WBC although it was greatly reduced and patient was asymptomatic. 1. Post left TKR wound on left knee clean without sign of inflammation pain very tolerable continue PT/OT Ortho consult appreciated 2. Postural Hypotension monitor BP hold therapy when symptomatic or SBP below 100 DC Losartan 3. Leukocytosis repeat blood culture continue Rocephin urinalysis 4. Elevated LFTs liver sonogram hepatitis profile in am DC statin 5. DM2 BS controlled continue low dose Metformin 6. HTN BP on the low side Losartan DC
[2017-11-14] MEDS: Insulin Lispro (humaLOG) 100 Units/ml Inj SC SCH ×4 (06:57→22:05)
[2017-11-14] MEDS: Potassium Chloride 20 mEq ER Tab PO SCH (08:18)
[2017-11-14] MEDS: Enoxaparin 40 mg Syringe SC SCH (08:18)
--- NOTE | 2017-11-14 19:52 | PN ---
PHYSIATRY PROGRESS NOTE DATE: SUBJECTIVE: The patient is feeling fine. A 72-year-old female in no acute complains of knee pain. PHYSICAL EXAMINATION: VITAL SIGNS: Stable. NECK: Supple. CHEST: Symmetrical. HEART: Sounds S1 and S2. ABDOMEN: Abdominal area is benign. EXTREMITIES: No clubbing, cyanosis or edema. IMPRESSION: Left total knee replacement, hypertension, diabetes, arthritis, breast cancer, and knee incisional area sealing with jos in place. PLAN: The patient is for discharge planning. Discussed with the patient regarding management of the knee incisional area, to followup with Orthopedic physician after discharge. Golden Castañeda MD
[2017-11-15] MEDS: Insulin Lispro (humaLOG) 100 Units/ml Inj SC SCH ×2 (06:46→12:14)
[2017-11-15 08:55] VITALS: BP 134/70; PULSE 84; TEMP 98.4; O2SAT 99
[2017-11-15] MEDS: Potassium Chloride 20 mEq ER Tab PO SCH (09:10)
[2017-11-15] MEDS: Enoxaparin 40 mg Syringe SC SCH (09:11)
--- NOTE | 2017-11-15 12:53 | CP.PCM.DIS ---
Provider - Provider Date of Admission: 11/07/17 23:19 Attending physician: Mercedes Mendoza MD Time Spent in preparation of Discharge (in minutes): 30 Diagnosis - Discharge Diagnosis (1) Status post total left knee replacement Status: Acute Hospital Course - Lab Results Lab Results: Micro Results 11/11/17 17:05 Blood-Venous Blood Culture - Preliminary NO GROWTH AFTER 3 DAYS 11/11/17 16:55 Blood-Venous Blood Culture - Preliminary NO GROWTH AFTER 3 DAYS Most Recent Lab Values WBC 10.9 K/uL (4.8-10.8) H 11/13/17 06:10 RBC 2.70 Mil/uL (3.80-5.20) L 11/13/17 06:10 Hgb 8.4 g/dL (12.0-16.0) L 11/13/17 06:10 Hct 25.1 % (34.0-47.0) L 11/13/17 06:10 MCV 93.1 fl (81.0-99.0) 11/13/17 06:10 MCH 31.2 pg (27.0-31.0) H 11/13/17 06:10 MCHC 33.5 g/dL (33.0-37.0) 11/13/17 06:10 RDW 14.4 % (11.5-14.5) 11/13/17 06:10 Plt Count 273 K/uL (130-400) 11/13/17 06:10 MPV 9.2 fl (7.2-11.7) 11/12/17 05:40 Neut % (Auto) 67.5 % (50.0-75.0) 11/12/17 05:40 Lymph % (Auto) 18.8 % (20.0-40.0) L 11/12/17 05:40 [place] % (Auto) 10.4 % (0.0-10.0) H 11/12/17 05:40 Eos % (Auto) 2.9 % (0.0-4.0) 11/12/17 05:40 Baso % (Auto) 0.4 % (0.0-2.0) 11/12/17 05:40 Neut # (Auto) 7.4 K/uL (1.8-7.0) H 11/12/17 05:40 Lymph # (Auto) 2.1 K/uL (1.0-4.3) 11/12/17 05:40 [place] # (Auto) 1.1 K/uL (0.0-0.8) H 11/12/17 05:40 Eos # (Auto) 0.3 K/uL (0.0-0.7) 11/12/17 05:40 Baso # (Auto) 0.0 K/uL (0.0-0.2) 11/12/17 05:40 Sodium 137 mmol/l (132-148) 11/11/17 10:42 Potassium 4.9 MMOL/L (3.6-5.0) 11/11/17 10:42 Chloride 99 mmol/L (98-107) 11/11/17 10:42 Carbon Dioxide 30 mmol/L (22-30) 11/11/17 10:42 Anion Gap 13 (10-20) 11/11/17 10:42 BUN 19 mg/dl (7-17) H 11/11/17 10:42 Creatinine 0.9 mg/dl (0.7-1.2) 11/11/17 10:42 Est GFR ( Amer) > 60 11/11/17 10:42 Est GFR (Non-Af Amer) > 60 11/11/17 10:42 POC Glucose (mg/dL) 111 mg/dL (65-110) H 11/15/17 10:58 Random Glucose 110 mg/dL (65-105) H 11/11/17 10:42 Calcium 8.4 mg/dL (8.4-10.2) 11/11/17 10:42 Total Bilirubin 0.8 mg/dl (0.2-1.3) 11/11/17 10:42 AST 94 U/L (14-36) H D 11/11/17 10:42 ALT 84 U/L (9-52) H 11/11/17 10:42 Alkaline Phosphatase 102 U/L (38-126) 11/11/17 10:42 Total Protein 7.2 G/DL (6.3-8.2) 11/11/17 10:42 Albumin 3.4 g/dL (3.5-5.0) L 11/11/17 10:42 Globulin 3.8 gm/dL (2.2-3.9) 11/11/17 10:42 Albumin/Globulin Ratio 0.9 (1.0-2.1) L 11/11/17 10:42 Urine Color Yellow (YELLOW) 11/11/17 13:20 Urine Clarity Slighty-cloudy (Clear) 11/11/17 13:20 Urine pH 6.0 (5.0-8.0) 11/11/17 13:20 Ur Specific [place] 1.011 (1.003-1.030) 11/11/17 13:20 Urine Protein Negative mg/dL (NEGATIVE) 11/11/17 13:20 Urine Glucose (UA) Neg mg/dL (Normal) 11/11/17 13:20 Urine Ketones Negative mg/dL (NEGATIVE) 11/11/17 13:20 Urine Blood Negative (NEGATIVE) 11/11/17 13:20 Urine Nitrate Negative (NEGATIVE) 11/11/17 13:20 Urine Bilirubin Negative (NEGATIVE) 11/11/17 13:20 Urine Urobilinogen 0.2-1.0 mg/dL (0.2-1.0) 11/11/17 13:20 Ur Leukocyte Esterase Neg Maximiliano/uL (Negative) 11/11/17 13:20 Urine RBC (Auto) 3 /hpf (0-3) 11/11/17 13:20 Urine Microscopic WBC 4 /hpf (0-5) 11/11/17 13:20 Ur Squamous Epith Cells 5 /hpf (0-5) 11/11/17 13:20 Urine Bacteria Rare (<OCC) 11/11/17 13:20 Hyaline Casts 0-2 /hpf (0-2) 11/11/17 13:20 Hepatitis A IgM Ab Negative (NEGATIVE) 11/11/17 18:59 Hep Bs Antigen Negative (NEGATIVE) 11/11/17 18:59 Hep B Core IgM Ab Negative (NEGATIVE) 11/11/17 18:59 Hepatitis C Antibody Negative (NEGATIVE) 11/11/17 18:59 - Hospital Course Hospital Course: 72 female with history of DM2, HTN, Breast Ca and Ovarian Ca had left TKR at [facility] on 11/05/2017 after failing conservative management of arthritis of the left knee. She was empirically treated with IV Rocephin because of the persistent elevation of the WBC although it was greatly reduced and patient was asymptomatic. Participated [facility] PT well. patient stable to be discharged home with follow up PCP and Ortho in one week. 1. Post left TKR wound on left knee clean without sign of inflammation pain very tolerable continue PT/OT Ortho consult appreciated 2. Postural Hypotension monitor BP hold therapy when symptomatic or SBP below 100 DC Losartan 3. Leukocytosis repeat blood culture continue Rocephin urinalysis 4. Elevated LFTs liver sonogram hepatitis profile in am DC statin 5. DM2 BS controlled continue low dose Metformin 6. HTN BP on the low side Losartan DC Discharge Exam - Head Exam Head Exam: ATRAUMATIC Additional comments: Vitals Reviewed GEN: WDWN, ALERT, COOPERATIVE HEENT: NCAT, PERRL, EOMI HEART: RRR, +S1S2, NO MRG LUNG: CTAB, NO WRR ABD: SOFT, NT, ND, NO HSM, NO MASSES EXT: NORMAL PEDAL PULSES, GOOD CAPILLARY REFILL NEURO: AAOX3 SKIN: WARM, DRY PSYCH: NORMAL MOOD, NORMAL AFFECT Discharge Plan - Discharge Medications Prescriptions: Allopurinol [Zyloprim] 300 mg PO DAILY #30 tab Docusate [Colace] 100 mg PO TID #90 cap Enoxaparin [Lovenox] 40 mg SC DAILY #30 syr metFORMIN [glucOPHAGE] 500 mg PO DAILY #30 tab oxyCODONE/Acetaminophen [Percocet 5/325 mg Tab] 1 tab PO Q4 PRN #20 tab PRN Reason: Pain, Moderate (4-7) Simvastatin 20 mg PO HS #30 tablet - Follow Up Plan Condition: GOOD Disposition: HOME/ ROUTINE Instructions: Urinary Tract Infection in Women (DC), Precautions after Total Joint Replacement Surgery (DC), Fall Prevention (DC), Knee Replacement (DC) Additional Instructions: Appointment with Maria Alejandra 12/02/17 at 10 am and 11/18/2017 1030 am Follow up with primary MD Sonja rosariog one week
== END 2017-11-15 02:05 | disposition home or self-care (01) | DRG 561 ==
LOC: H.TCU 23:19
PROVIDERS: ADMIT Internal Medicine; ATTEND Internal Medicine
PROC: F08Z1FZ Dressing Techniques Treatment using Assistive, Adaptive, Supportive or Protective Equipment (ICD-10-PCS; principal; 2017-11-07)
PROC: F07Z9FZ Gait Training/Functional Ambulation Treatment using Assistive, Adaptive, Supportive or Protective Equipment (ICD-10-PCS; 2017-11-07)
PROC: F07L6FZ Therapeutic Exercise Treatment of Musculoskeletal System - Lower Back / Lower Extremity using Assistive, Adaptive, Supportive or Protective Equipment (ICD-10-PCS; 2017-11-07)
DX: Z47.1 Aftercare following joint replacement surgery (principal); E11.9 Type 2 diabetes mellitus without complications; D72.829 Elevated white blood cell count, unspecified; I10 Essential (primary) hypertension; I95.1 Orthostatic hypotension; M10.9 Gout, unspecified; Z96.652 Presence of left artificial knee joint; Z85.3 Personal history of malignant neoplasm of breast; Z85.43 Personal history of malignant neoplasm of ovary; R79.89 Other specified abnormal findings of blood chemistry; R53.1 Weakness

== ENCOUNTER 2018-08-07 15:10 | Inpatient (IN) | payer MEDICARE ==
[2018-08-07 20:41] VITALS: BMI 26.4
[2018-08-07] MEDS ORDERED: Oxycodone/Acetaminophen 5/325 mg Tab PO PRN (21:59)
[2018-08-07] MEDS ORDERED: Enoxaparin 40 mg Syringe SC SCH (22:00)
[2018-08-07] MEDS ORDERED: Ergocalciferol 50,000 Intl Units Cap PO SCH (22:00)
--- NOTE | 2018-08-07 22:10 | CP.PCM.HP ---
History of Present Illness - History of Present Illness History of Present Illness: Orthopedic: Dr Julio Bueno Chief complaint: Right Knee replacement The Patient was seen and examined in the TCU HPI: The hx was obtained from the Patient and after review of the medical chart. She is 72 years with a hx of DM II, HTN, breast and ovarian cancer, who was admitted at the [facility] on the 08/05/18 for a Right total Knee replacement. done on 08/06/18. She is transferred to the [facility] for continued treatment and Physical Therapy. PMH: HTN, DM II, ovarian ca s/p hysterectomy oophorectomy and Left breast ca s/p B mastectomy, cataracts, gout; Diverticulosis; Spinal Stenosis PSH: Cholecystectomy; Hysterectomy; bilateral Mastectomy; cataract surgery SH: No illegal drug use; No Alcohol; No tobacco FH: Brother with [place] and Stroke after 50 years of age; Niece with brest cancer allergies: NKDA Medication: NKDA Present on Admission - Present on Admission Any Indicators Present on Admission: No History of DVT/PE: No History of Uncontrolled Diabetes: No Urinary Catheter: No Decubitus Ulcer Present: No Review of Systems - Constitutional Constitutional: absent: Anorexia, Chills, Fever, Headache - EENT Eyes: absent: Blurred Vision, Diplopia, Floaters, Requires Corrective Lenses Ears: absent: Decreased Hearing, Ear Discharge, Tinnitus Nose/Mouth/Throat: absent: Epistaxis, Nasal Congestion, Nasal Discharge, Sinus Pain, Sinus Pressure - Cardiovascular Cardiovascular: absent: Chest Pain, Dyspnea, Edema - Respiratory Respiratory: absent: Cough, Dyspnea, Wheezing, Stridor - Gastrointestinal Gastrointestinal: absent: Abdominal Pain, Diarrhea, Nausea, Vomiting - Genitourinary Genitourinary: absent: Dysuria, Flank Pain, Urinary Frequency - Musculoskeletal Musculoskeletal: Arthralgias Additional comments: Right knee pain - Integumentary Integumentary: absent: Pruritus, Rash - Neurological Neurological: absent: Confusion, Dizziness, Headaches - Psychiatric Psychiatric: absent: Anxiety, Confusion - Endocrine Endocrine: absent: Palpitations, Polydipsia, Polyphagia, Polyuria - Hematologic/Lymphatic Hematologic: absent: Easy Bleeding, Easy Bruising Past Patient History - Past Medical History & Family History Past Medical History?: Yes - Past Social History Smoking Status: Never Smoked Chewing Tobacco Use: No Cigar Use: No Alcohol: None Drugs: Denies - CARDIAC Hx Cardiac Disorders: Yes Hx Hypercholesterolemia: Yes Hx Hypertension: Yes - PULMONARY Hx Respiratory Disorders: No - NEUROLOGICAL Hx Neurological Disorder: No - HEENT Hx HEENT Problems: Yes Hx Cataracts: Yes (BILAT.) - RENAL Hx Chronic Kidney Disease: No - ENDOCRINE/METABOLIC Hx Diabetes Mellitus Type 2: Yes - HEMATOLOGICAL/ONCOLOGICAL Hx Blood Disorders: Yes Hx AIDS: No Hx Cancer: Yes (OVARIAN; BREAST(LEFT)) Hx Chemotherapy: Yes (POST OVARIAN CANCER) Hx Human Immunodeficiency Virus (HIV): No - INTEGUMENTARY Hx Dermatological Problems: Yes - MUSCULOSKELETAL/RHEUMATOLOGICAL Hx Musculoskeletal Disorders: Yes Hx Arthritis: Yes Hx Degenerative Joint Disease: Yes Hx Falls: Yes (Fell 2 yrs ago) Hx Gout: Yes Hx Spinal Stenosis: Yes - GASTROINTESTINAL Hx Gastrointestinal Disorders: Yes Hx Gall Bladder Disease: Yes Hx Hemorrhoids: Yes Other/Comment: HX: DIVERTICULOSIS - GENITOURINARY/GYNECOLOGICAL Hx Genitourinary Disorders: Yes Hx Ovarian Cancer: Yes Hx Urinary Tract Infection: Yes - PSYCHIATRIC Hx Psychophysiologic Disorder: No Hx Substance Use: No - SURGICAL HISTORY Hx Surgeries: Yes Hx Cataract Extraction: Yes (BILAT.) Hx Cholecystectomy: Yes Hx Hysterectomy: Yes Hx Joint Replacement: Yes (LEFT KNEE) Hx Mastectomy: Yes (BILATERAL) Hx Orthopedic Surgery: Yes (SPINAL STENOSIS) - ANESTHESIA Hx Anesthesia: Yes Hx Anesthesia Reactions: No Hx Malignant Hyperthermia: No Meds Allergies/Adverse Reactions: Allergies Allergy/AdvReac Type Severity Reaction Status Date / Time No Known Allergies Allergy Verified 08/18/17 07:39 Physical Exam - Constitutional Appears: No Acute Distress - Head Exam Head Exam: ATRAUMATIC, NORMAL INSPECTION, NORMOCEPHALIC - Eye Exam Eye Exam: EOMI Pupil Exam: NORMAL ACCOMODATION, PERRL - ENT Exam ENT Exam: Mucous Membranes Moist, Normal Exam, Normal External Ear Exam - Neck Exam Neck exam: Positive for: Full Rom, Normal Inspection. Negative for: Lym phadenopathy, Tenderness - Respiratory Exam Respiratory Exam: Clear to Auscultation Bilateral. absent: Rales, Rhonchi, Wheezes - Cardiovascular Exam Cardiovascular Exam: RRR, +S1, +S2. absent: Gallop - GI/Abdominal Exam GI & Abdominal Exam: Normal Bowel Sounds, Soft. absent: Mass, Organomegaly, Tenderness - Rectal Exam Rectal Exam: Deferred - Extremities Exam Extremities exam: Negative for: pedal edema Additional comments: Post surgical pain to the Right knee Right knee in post surgical dressing with immobilizer in place - Back Exam Back exam: NORMAL INSPECTION. absent: CVA tenderness (L), CVA tenderness (R) - Neurological Exam Neurological exam: Alert, CN II-XII Intact, Oriented x3, Reflexes Normal - Psychiatric Exam Psychiatric exam: Normal Affect, Normal Mood - Skin Skin Exam: Dry, Normal Color, Warm Results - Vital Signs Recent Vital Signs: Last Vital Signs Temp 99.7 F H 08/07/18 21:02 Pulse 116 H 08/07/18 21:02 Resp 20 08/07/18 21:02 BP 149/79 08/07/18 21: Pulse Ox 96 08/07/18 21:02 - Labs Labs: Laboratory Results - last 24 hr 08/07/18 21:18 POC Glucose (mg/dL) 145 H Assessment & Plan - Assessment and Plan (Free Text) Assessment: #. Osteoarthritis of Right knee s/p Right TKR #. DM II controlled #.Spinal Stenosis #. Gout Plan: 72 years with a hx of DM II, HTN, breast and ovarian cancer, who was admitted at the [facility] on the 08/05/18 for a Right total Knee replacement. done on 08/06/18. She is transferred to the [facility] for continued treatment and Physical Therapy. #. Osteoarthritis of Right knee s/p Right TKR - Consult Dr Julio Bueno orthopedic - Pain management with Percocet - OT/PT #. DM II controlled - Metformin - lispro sliding scale according to accucheck #.Spinal Stemosis - Pain management #. Gout - Allopurinol #. DVT prophylaxis with lovenox #. Code Status: full - Date & Time Date: 08/07/18 Time: 22:10
[2018-08-08] MEDS: Insulin Lispro (humaLOG) 100 Units/ml Inj SC SCH ×4 (06:37→23:40)
[2018-08-08 07:25] LABS: BASO # 0.1 K/uL (0.0-0.2); BASO % 0.5 % (0.0-2.0); EOS # 0.1 K/uL (0.0-0.7); EOS % 0.4 % (0.0-4.0); HEMOGLOBIN 7.8 g/dL (12.0-16.0); LYMPH % 13.2 % (20.0-40.0); MEAN CELL VOLUME 91.8 fl (81.0-99.0); MEAN CORPUSCULAR HEMOGLOBIN 31.6 pg (27.0-31.0); MEAN CORPUSCULAR HGB CONC 34.4 g/dL (33.0-37.0); MEAN PLATELET VOLUME 9.8 fl (7.2-11.7); MONO # 1.6 K/uL (0.0-0.8); MONO % 10.4 % (0.0-10.0); NEUT # 11.5 K/uL (1.8-7.0); NEUT % 75.5 % (50.0-75.0); RBC 2.48 Mil/uL (3.80-5.20); RED CELL DISTRIBUTION WIDTH 13.6 % (11.5-14.5); WHITE BLOOD COUNT 15.2 K/uL (4.8-10.8)
[2018-08-08 07:42] LABS: ALT/SGPT 27 U/L (9-52); AST/SGOT 101 U/L (14-36); BLOOD UREA NITROGEN 17 mg/dl (7-17); CALCIUM 8.1 mg/dL (8.4-10.2); GFR NON-AFRICAN AMERICAN > 60
[2018-08-08] MEDS: Lactobacillus Acidophilus 500 MU Cap PO SCH ×2 (08:31→16:26)
[2018-08-08] MEDS: Oxycodone/Acetaminophen 5/325 mg Tab PO PRN ×2 (08:31→15:42)
[2018-08-08] MEDS: Enoxaparin 40 mg Syringe SC SCH (08:32)
--- NOTE | 2018-08-08 14:36 | RAD ---
Date of service: 08/08/2018 HISTORY: s/p tkr COMPARISON: None available. FINDINGS: BONES: Status post knee arthroplasty. JOINTS: Normal. No osteoarthritis. SOFT TISSUE: Normal. OTHER FINDINGS: None . IMPRESSION: Status post knee arthroplasty.
[2018-08-09 07:34] LABS: HEMOGLOBIN 6.8 g/dL (12.0-16.0); MEAN CELL VOLUME 91.7 fl (81.0-99.0); MEAN CORPUSCULAR HGB CONC 33.8 g/dL (33.0-37.0); RBC 2.18 Mil/uL (3.80-5.20); RED CELL DISTRIBUTION WIDTH 13.3 % (11.5-14.5); WHITE BLOOD COUNT 11.4 K/uL (4.8-10.8)
[2018-08-09] MEDS: Insulin Lispro (humaLOG) 100 Units/ml Inj SC SCH ×4 (08:16→21:10)
[2018-08-09] MEDS: Enoxaparin 40 mg Syringe SC SCH (09:01)
[2018-08-09] MEDS: Lactobacillus Acidophilus 500 MU Cap PO SCH ×2 (09:03→19:57)
[2018-08-09] MEDS: Oxycodone/Acetaminophen 5/325 mg Tab PO PRN (12:25)
[2018-08-10] MEDS: Insulin Lispro (humaLOG) 100 Units/ml Inj SC SCH ×4 (06:54→22:05)
[2018-08-10 08:25] VITALS: RESP 20
[2018-08-10] MEDS: Oxycodone/Acetaminophen 5/325 mg Tab PO PRN ×2 (08:32→16:08)
[2018-08-10] MEDS: Lactobacillus Acidophilus 500 MU Cap PO SCH ×2 (08:33→16:08)
--- NOTE | 2018-08-10 11:27 | CP.PCM.PN ---
Subjective - Date & Time of Evaluation Date of Evaluation: 08/10/18 Time of Evaluation: 08:00 - Subjective Subjective: Patient seen and examined at bedside comfortable. Pain is well controlled. She received 2 units PRBC's last night well due to postop anemia. Offers no other complaints. Denies CP/SOB/fever/SMITH. Objective - Vital Signs/Intake and Output Vital Signs (last 24 hours): Temp Pulse Resp BP Pulse Ox 98.2 F 90 20 137/76 99 08/10/18 08:24 08/10/18 08:24 08/10/18 08:24 08/10/18 08:24 08/10/18 08:24 - Medications Medications: Current Medications Allopurinol (Zyloprim) 150 mg PO DAILY [facility] Last Admin: 08/10/18 08:33 Dose: 150 mg Aspirin (Ecotrin) 81 mg PO DAILY [facility] Last Admin: 08/10/18 08:33 Dose: 81 mg Docusate Sodium (Colace) 100 mg PO BID [facility] Last Admin: 08/10/18 08:33 Dose: 100 mg Enoxaparin Sodium (Lovenox) 40 mg SC DAILY [facility]; Protocol Last Admin: 08/09/18 09:01 Dose: 40 mg Ergocalciferol (Drisdol 50,000 Intl Units Cap) 1 cap PO QWK [facility] Last Admin: 08/10/18 08:33 Dose: 1 cap Fenofibrate (Tricor) 48 mg PO DAILY [facility] Last Admin: 08/10/18 08:34 Dose: 48 mg Insulin Human Lispro (Humalog) 0 units SC [facility]; Protocol Last Admin: 08/10/18 06:54 Dose: Not Given Lactobacillus Acidophilus (Bacid Acidophilus) 1 cap PO BID [facility] Last Admin: 08/10/18 08:33 Dose: 1 cap Metformin HCl (Glucophage) 500 mg PO DAILY [facility] Last Admin: 08/10/18 08:34 Dose: 500 mg Oxycodone/Acetaminophen (Percocet 5/325 Mg Tab) 1 tab PO Q6H PRN PRN Reason: Pain, moderate (4-7) Stop: 08/10/18 21:59 Last Admin: 08/10/18 08:32 Dose: 1 tab Oxycodone/Acetaminophen (Percocet 5/325 Mg Tab) 2 tab PO Q6 PRN PRN Reason: Pain, severe (8-10) Stop: 08/10/18 22:00 - Labs Labs: 08/09/18 05:30 08/08/18 05:30 - Extremities Exam Additional comments: R knee: Dressings CDI, mild swelling Hemovac drain site clean/dry wound CDI with jos/dermabond sensation intact SP/DP/TN motor intact EHL/FHL/TA/G pedal pulses intact calves soft/NT b/l Assessment and Plan (1) Status post total right knee replacement Assessment & Plan: POD#5 s/p R TKA doing well -repeat CBC -dry dressings changed -CPM and Knee imm as per order -PT/OT WBAT -above d/w Dr. Cabrera in agreement Status: Acute
[2018-08-10 12:52] LABS: HEMOGLOBIN 11.4 g/dL (12.0-16.0); MEAN CELL VOLUME 93.1 fl (81.0-99.0); MEAN CORPUSCULAR HEMOGLOBIN 30.6 pg (27.0-31.0); MEAN CORPUSCULAR HGB CONC 32.8 g/dL (33.0-37.0); RBC 3.74 Mil/uL (3.80-5.20); WHITE BLOOD COUNT 13.4 K/uL (4.8-10.8)
[2018-08-11] MEDS: Insulin Lispro (humaLOG) 100 Units/ml Inj SC SCH ×4 (06:38→21:26)
[2018-08-11] MEDS: Lactobacillus Acidophilus 500 MU Cap PO SCH ×2 (08:29→16:51)
[2018-08-11] MEDS: Enoxaparin 40 mg Syringe SC SCH (08:29)
[2018-08-11] MEDS ORDERED: Oxycodone/Acetaminophen 5/325 mg Tab PO PRN (09:10)
[2018-08-11] MEDS: Oxycodone/Acetaminophen 5/325 mg Tab PO PRN ×2 (10:22→18:09)
--- NOTE | 2018-08-11 16:18 | CP.PCM.PN ---
Subjective - Date & Time of Evaluation Date of Evaluation: 08/11/18 Time of Evaluation: 16:16 - Subjective Subjective: Patient working with PT no acute complaints offered Objective - Vital Signs/Intake and Output Vital Signs (last 24 hours): Temp Pulse Resp BP Pulse Ox 98.4 F 85 20 114/56 L 100 08/11/18 08:20 08/11/18 08:20 08/11/18 08:20 08/11/18 08:20 08/11/18 08:20 - Medications Medications: Current Medications Allopurinol (Zyloprim) 150 mg PO DAILY [facility] Last Admin: 08/11/18 08:30 Dose: 150 mg Aspirin (Ecotrin) 81 mg PO DAILY [facility] Last Admin: 08/11/18 08:30 Dose: 81 mg Docusate Sodium (Colace) 100 mg PO BID [facility] Last Admin: 08/11/18 08:29 Dose: 100 mg Enoxaparin Sodium (Lovenox) 40 mg SC DAILY [facility]; Protocol Last Admin: 08/11/18 08:29 Dose: 40 mg Ergocalciferol (Drisdol 50,000 Intl Units Cap) 1 cap PO QWK [facility] Fenofibrate (Tricor) 48 mg PO DAILY [facility] Last Admin: 08/11/18 08:30 Dose: 48 mg Insulin Human Lispro (Humalog) 0 units SC [facility]; Protocol Last Admin: 08/11/18 12:38 Dose: 1 unit Lactobacillus Acidophilus (Bacid Acidophilus) 1 cap PO BID [facility] Last Admin: 08/11/18 08:29 Dose: 1 cap Metformin HCl (Glucophage) 500 mg PO DAILY [facility] Last Admin: 08/11/18 08:30 Dose: 500 mg Oxycodone/Acetaminophen (Percocet 5/325 Mg Tab) 1 tab PO Q6 PRN PRN Reason: Pain, moderate (4-7) Stop: 08/14/18 09:10 Last Admin: 08/11/18 10:22 Dose: 1 tab Oxycodone/Acetaminophen (Percocet 5/325 Mg Tab) 2 tab PO Q6 PRN PRN Reason: Pain, severe (8-10) Stop: 08/14/18 09:11 - Labs Labs: 08/10/18 12:45 08/08/18 05:30 - Constitutional Appears: No Acute Distress - Head Exam Head Exam: ATRAUMATIC, NORMAL INSPECTION - Eye Exam Eye Exam: EOMI, PERRL - ENT Exam ENT Exam: Mucous Membranes Moist - Respiratory Exam Respiratory Exam: Clear to Ausculation Bilateral, NORMAL BREATHING PATTERN - Cardiovascular Exam Cardiovascular Exam: REGULAR RHYTHM - Neurological Exam Neurological Exam: Alert, Awake, CN II-XII Intact Assessment and Plan - Assessment and Plan (Free Text) Assessment: Assessment: #. Osteoarthritis of Right knee s/p Right TKR #. DM II controlled #.Spinal Stenosis #. Gout Plan: 72 years with a hx of DM II, HTN, breast and ovarian cancer, who was admitted at the [facility] on the 08/05/18 for a Right total Knee replacement. done on 08/06/18. She is transferred to the [place] [facility] for continued treatment and Physical Therapy. #. Osteoarthritis of Right knee s/p Right TKR - Pain management with Percocet - OT/PT #. DM II controlled - Metformin - lispro sliding scale according to accucheck #.Spinal Stemosis - Pain management #. Gout - Allopurinol #. DVT prophylaxis with lovenox #. Code Status: full
--- NOTE | 2018-08-11 20:10 | CP.PCM.CON ---
History of Present Illness - History of Present Illness History of Present Illness: 72 year old female admitted to TCU for inpatient rahb, with history of Right TKR, OA, Dm and spinal stenosis Review of Systems - Musculoskeletal Musculoskeletal: Muscle Weakness Past Patient History - Past Medical History & Family History Past Medical History?: Yes - Past Social History Smoking Status: Never Smoked Chewing Tobacco Use: No Cigar Use: No Alcohol: None Drugs: Denies - CARDIAC Hx Cardiac Disorders: Yes Hx Hypercholesterolemia: Yes Hx Hypertension: Yes - PULMONARY Hx Respiratory Disorders: No - NEUROLOGICAL Hx Neurological Disorder: No - HEENT Hx HEENT Problems: Yes Hx Cataracts: Yes (BILAT.) - RENAL Hx Chronic Kidney Disease: No - ENDOCRINE/METABOLIC Hx Diabetes Mellitus Type 2: Yes - HEMATOLOGICAL/ONCOLOGICAL Hx Blood Disorders: Yes Hx AIDS: No Hx Cancer: Yes (OVARIAN; BREAST(LEFT)) Hx Chemotherapy: Yes (POST OVARIAN CANCER) Hx Human Immunodeficiency Virus (HIV): No - INTEGUMENTARY Hx Dermatological Problems: Yes - MUSCULOSKELETAL/RHEUMATOLOGICAL Hx Musculoskeletal Disorders: Yes Hx Arthritis: Yes Hx Degenerative Joint Disease: Yes Hx Falls: Yes (Fell 2 yrs ago) Hx Gout: Yes Hx Spinal Stenosis: Yes - GASTROINTESTINAL Hx Gastrointestinal Disorders: Yes Hx Gall Bladder Disease: Yes Hx Hemorrhoids: Yes Other/Comment: HX: DIVERTICULOSIS - GENITOURINARY/GYNECOLOGICAL Hx Genitourinary Disorders: Yes Hx Ovarian Cancer: Yes Hx Urinary Tract Infection: Yes - PSYCHIATRIC Hx Psychophysiologic Disorder: No Hx Substance Use: No - SURGICAL HISTORY Hx Surgeries: Yes Hx Cataract Extraction: Yes (BILAT.) Hx Cholecystectomy: Yes Hx Hysterectomy: Yes Hx Joint Replacement: Yes (LEFT KNEE) Hx Mastectomy: Yes (BILATERAL) Hx Orthopedic Surgery: Yes (SPINAL STENOSIS) - ANESTHESIA Hx Anesthesia: Yes Hx Anesthesia Reactions: No Hx Malignant Hyperthermia: No Meds Allergies/Adverse Reactions: Allergies Allergy/AdvReac Type Severity Reaction Status Date / Time No Known Allergies Allergy Verified 08/18/17 07:39 - Medications Medications: Current Medications Allopurinol (Zyloprim) 150 mg PO DAILY [facility] Last Admin: 08/11/18 08:30 Dose: 150 mg Aspirin (Ecotrin) 81 mg PO DAILY [facility] Last Admin: 08/11/18 08:30 Dose: 81 mg Docusate Sodium (Colace) 100 mg PO BID [facility] Last Admin: 08/11/18 16:51 Dose: 100 mg Enoxaparin Sodium (Lovenox) 40 mg SC DAILY [facility]; Protocol Last Admin: 08/11/18 08:29 Dose: 40 mg Ergocalciferol (Drisdol 50,000 Intl Units Cap) 1 cap PO QWK [facility] Fenofibrate (Tricor) 48 mg PO DAILY [facility] Last Admin: 08/11/18 08:30 Dose: 48 mg Insulin Human Lispro (Humalog) 0 units SC [facility]; Protocol Last Admin: 08/11/18 16:51 Dose: Not Given Lactobacillus Acidophilus (Bacid Acidophilus) 1 cap PO BID [facility] Last Admin: 08/11/18 16:51 Dose: 1 cap Metformin HCl (Glucophage) 500 mg PO DAILY [facility] Last Admin: 08/11/18 08:30 Dose: 500 mg Oxycodone/Acetaminophen (Percocet 5/325 Mg Tab) 1 tab PO Q6 PRN PRN Reason: Pain, moderate (4-7) Stop: 08/14/18 09:10 Last Admin: 08/11/18 18:09 Dose: 1 tab Oxycodone/Acetaminophen (Percocet 5/325 Mg Tab) 2 tab PO Q6 PRN PRN Reason: Pain, severe (8-10) Stop: 08/14/18 09:11 Physical Exam - Constitutional Appears: Well - Head Exam Head Exam: ATRAUMATIC, NORMAL INSPECTION, NORMOCEPHALIC - Eye Exam Eye Exam: EOMI, Normal appearance Pupil Exam: NORMAL ACCOMODATION, PERRL - ENT Exam ENT Exam: Mucous Membranes Moist, Normal Exam - Neck Exam Neck exam: Positive for: Normal Inspection - Respiratory Exam Respiratory Exam: Clear to Auscultation Bilateral, NORMAL BREATHING PATTERN - Cardiovascular Exam Cardiovascular Exam: REGULAR RHYTHM - GI/Abdominal Exam GI & Abdominal Exam: Normal Bowel Sounds - Rectal Exam Rectal Exam: NORMAL INSPECTION - Exam External exam: NORMAL EXTERNAL EXAM - Extremities Exam Extremities exam: Positive for: normal inspection Additional comments: right leg weakness - Back Exam Back exam: NORMAL INSPECTION - Neurological Exam Neurological exam: Alert - Psychiatric Exam Psychiatric exam: Normal Affect - Skin Skin Exam: Normal Color Results - Vital Signs Recent Vital Signs: Last Vital Signs Temp 98.6 F 08/11/18 20:01 Pulse 94 H 08/11/18 20:01 Resp 20 08/11/18 20:01 BP 122/69 08/11/18 20:01 Pulse Ox 100 11/06/18 20:01 - Labs Result Diagrams: 08/10/18 12:45 08/08/18 05:30 Labs: Laboratory Results - last 24 hr 08/10/18 08/11/18 08/11/18 21:31 05:58 10:44 POC Glucose (mg/dL) 130 H 117 H 154 H 08/11/18 16:34 POC Glucose (mg/dL) 108 Assessment & Plan (1) Status post total right knee replacement Assessment and Plan: plan for physical, occupational therapy for quad strengthening,Range of motion, strengthening, transfers and gait training, superficial modalities and monitor skin Status: Acute (2) Anemia Status: Acute (3) Degenerative arthritis of right knee Status: Acute (4) History of gout Status: Acute (5) Status post total left knee replacement Status: Acute
--- NOTE | 2018-08-11 20:15 | CP.PCM.PN ---
Subjective - Date & Time of Evaluation Date of Evaluation: 08/17/18 Time of Evaluation: 14:00 - Subjective Subjective: no acute complaints of pain, Objective - Vital Signs/Intake and Output Vital Signs (last 24 hours): Temp Pulse Resp BP Pulse Ox 98.6 F 94 H 20 122/69 100 08/11/18 20:01 08/11/18 20:01 08/11/18 20:01 08/11/18 20:01 08/11/18 20:01 - Medications Medications: Current Medications Allopurinol (Zyloprim) 150 mg PO DAILY [facility] Last Admin: 08/11/18 08:30 Dose: 150 mg Aspirin (Ecotrin) 81 mg PO DAILY [facility] Last Admin: 08/11/18 08:30 Dose: 81 mg Docusate Sodium (Colace) 100 mg PO BID [facility] Last Admin: 08/11/18 16:51 Dose: 100 mg Enoxaparin Sodium (Lovenox) 40 mg SC DAILY [facility]; Protocol Last Admin: 08/11/18 08:29 Dose: 40 mg Ergocalciferol (Drisdol 50,000 Intl Units Cap) 1 cap PO QWK [facility] Fenofibrate (Tricor) 48 mg PO DAILY [facility] Last Admin: 08/11/18 08:30 Dose: 48 mg Insulin Human Lispro (Humalog) 0 units SC [facility]; Protocol Last Admin: 08/11/18 16:51 Dose: Not Given Lactobacillus Acidophilus (Bacid Acidophilus) 1 cap PO BID [facility] Last Admin: 08/11/18 16:51 Dose: 1 cap Metformin HCl (Glucophage) 500 mg PO DAILY [facility] Last Admin: 08/11/18 08:30 Dose: 500 mg Oxycodone/Acetaminophen (Percocet 5/325 Mg Tab) 1 tab PO Q6 PRN PRN Reason: Pain, moderate (4-7) Stop: 08/14/18 09:10 Last Admin: 08/11/18 18:09 Dose: 1 tab Oxycodone/Acetaminophen (Percocet 5/325 Mg Tab) 2 tab PO Q6 PRN PRN Reason: Pain, severe (8-10) Stop: 08/14/18 09:11 - Labs Labs: 08/10/18 12:45 08/08/18 05:30 - Head Exam Head Exam: ATRAUMATIC, NORMAL INSPECTION, NORMOCEPHALIC - Eye Exam Eye Exam: EOMI, Normal appearance Pupil Exam: NORMAL ACCOMODATION, PERRL - ENT Exam ENT Exam: Mucous Membranes Moist, Normal Exam - Neck Exam Neck Exam: Normal Inspection - Respiratory Exam Respiratory Exam: Clear to Ausculation Bilateral, NORMAL BREATHING PATTERN - Cardiovascular Exam Cardiovascular Exam: REGULAR RHYTHM - GI/Abdominal Exam GI & Abdominal Exam: Soft, Normal Bowel Sounds - Rectal Exam Rectal Exam: NORMAL INSPECTION - Exam External exam: NORMAL EXTERNAL EXAM - Extremities Exam Extremities Exam: Normal Capillary Refill, Normal Inspection - Back Exam Back Exam: NORMAL INSPECTION - Neurological Exam Neurological Exam: Alert Neuro motor strength exam: Right Upper Extremity: 3 - Psychiatric Exam Psychiatric exam: Normal Affect, Normal Mood - Skin Skin Exam: Normal Color Assessment and Plan (1) Status post total right knee replacement Assessment & Plan: plan for physical, occupational therapy CPM, monitor pain, WBAT and monitor heamoglobin Status: Acute (2) Anemia Status: Acute (3) Degenerative arthritis of right knee Status: Acute (4) History of gout Status: Acute (5) Status post total left knee replacement Status: Acute
[2018-08-12] MEDS: Insulin Lispro (humaLOG) 100 Units/ml Inj SC SCH ×4 (06:36→21:35)
[2018-08-12] MEDS: Enoxaparin 40 mg Syringe SC SCH (08:13)
[2018-08-12] MEDS: Lactobacillus Acidophilus 500 MU Cap PO SCH ×2 (08:15→16:47)
[2018-08-12] MEDS: Oxycodone/Acetaminophen 5/325 mg Tab PO PRN ×2 (10:00→16:47)
--- NOTE | 2018-08-12 17:24 | CP.PCM.PN ---
Subjective - Date & Time of Evaluation Date of Evaluation: 08/12/18 Time of Evaluation: 15:00 - Subjective Subjective: Patient seen and examined OOB ambulating with PT. Pain is improved, well controlled. No new complaints. Objective - Vital Signs/Intake and Output Vital Signs (last 24 hours): Temp Pulse Resp BP Pulse Ox 98.4 F 93 H 20 115/61 99 08/12/18 16:51 08/12/18 16:51 08/12/18 16:51 08/12/18 16:51 08/12/18 16:51 - Medications Medications: Current Medications Allopurinol (Zyloprim) 150 mg PO DAILY [facility] Last Admin: 08/12/18 08:15 Dose: 150 mg Aspirin (Ecotrin) 81 mg PO DAILY [facility] Last Admin: 08/12/18 08:16 Dose: 81 mg Docusate Sodium (Colace) 100 mg PO BID [facility] Last Admin: 08/12/18 16:47 Dose: 100 mg Enoxaparin Sodium (Lovenox) 40 mg SC DAILY [facility]; Protocol Last Admin: 08/12/18 08:13 Dose: 40 mg Ergocalciferol (Drisdol 50,000 Intl Units Cap) 1 cap PO QWK [facility] Fenofibrate (Tricor) 48 mg PO DAILY [facility] Last Admin: 08/12/18 08:16 Dose: 48 mg Insulin Human Lispro (Humalog) 0 units SC [facility]; Protocol Last Admin: 08/12/18 16:48 Dose: Not Given Lactobacillus Acidophilus (Bacid Acidophilus) 1 cap PO BID [facility] Last Admin: 08/12/18 16:47 Dose: 1 cap Metformin HCl (Glucophage) 500 mg PO DAILY@0800 [facility] Last Admin: 08/12/18 08:16 Dose: 500 mg Oxycodone/Acetaminophen (Percocet 5/325 Mg Tab) 1 tab PO Q6 PRN PRN Reason: Pain, moderate (4-7) Stop: 08/14/18 09:10 Last Admin: 08/12/18 16:47 Dose: 1 tab Oxycodone/Acetaminophen (Percocet 5/325 Mg Tab) 2 tab PO Q6 PRN PRN Reason: Pain, severe (8-10) Stop: 08/14/18 09:11 - Labs Labs: 08/10/18 12:45 08/08/18 05:30 - Extremities Exam Additional comments: R knee: Dressings CDI, mild swelling wound CDI with jos/dermabond sensation intact SP/DP/TN motor intact EHL/FHL/TA/G pedal pulses intact calves soft/NT b/l Assessment and Plan (1) Status post total right knee replacement Assessment & Plan: POD#7 s/p R TKA doing well -CPM and Knee imm as per order -knee immobilizer on only when ambulating -PT/OT WBAT -above d/w Dr. Cabrera in agreement Status: Acute
--- NOTE | 2018-08-12 18:50 | CP.PCM.PN ---
Subjective - Date & Time of Evaluation Date of Evaluation: 08/12/18 Time of Evaluation: 13:00 - Subjective Subjective: patient lying in bed no acute complaints of right knee Objective - Vital Signs/Intake and Output Vital Signs (last 24 hours): Temp Pulse Resp BP Pulse Ox 98.4 F 93 H 20 115/61 99 08/12/18 16:51 08/12/18 16:51 08/12/18 16:51 08/12/18 16:51 08/12/18 16:51 - Medications Medications: Current Medications Allopurinol (Zyloprim) 150 mg PO DAILY [facility] Last Admin: 08/12/18 08:15 Dose: 150 mg Aspirin (Ecotrin) 81 mg PO DAILY [facility] Last Admin: 08/12/18 08:16 Dose: 81 mg Docusate Sodium (Colace) 100 mg PO BID [facility] Last Admin: 08/12/18 16:47 Dose: 100 mg Enoxaparin Sodium (Lovenox) 40 mg SC DAILY [facility]; Protocol Last Admin: 08/12/18 08:13 Dose: 40 mg Ergocalciferol (Drisdol 50,000 Intl Units Cap) 1 cap PO QWK [facility] Fenofibrate (Tricor) 48 mg PO DAILY [facility] Last Admin: 08/12/18 08:16 Dose: 48 mg Insulin Human Lispro (Humalog) 0 units SC [facility]; Protocol Last Admin: 08/12/18 16:48 Dose: Not Given Lactobacillus Acidophilus (Bacid Acidophilus) 1 cap PO BID [facility] Last Admin: 08/12/18 16:47 Dose: 1 cap Metformin HCl (Glucophage) 500 mg PO DAILY@0800 [facility] Last Admin: 08/12/18 08:16 Dose: 500 mg Oxycodone/Acetaminophen (Percocet 5/325 Mg Tab) 1 tab PO Q6 PRN PRN Reason: Pain, moderate (4-7) Stop: 08/14/18 09:10 Last Admin: 08/12/18 16:47 Dose: 1 tab Oxycodone/Acetaminophen (Percocet 5/325 Mg Tab) 2 tab PO Q6 PRN PRN Reason: Pain, severe (8-10) Stop: 08/14/18 09:11 - Labs Labs: 08/10/18 12:45 08/08/18 05:30 - Head Exam Head Exam: ATRAUMATIC, NORMAL INSPECTION, NORMOCEPHALIC - Eye Exam Eye Exam: EOMI, Normal appearance Pupil Exam: NORMAL ACCOMODATION, PERRL - ENT Exam ENT Exam: Mucous Membranes Moist, Normal Exam - Neck Exam Neck Exam: Full ROM, Normal Inspection - Respiratory Exam Respiratory Exam: Clear to Ausculation Bilateral, NORMAL BREATHING PATTERN - Cardiovascular Exam Cardiovascular Exam: REGULAR RHYTHM - GI/Abdominal Exam GI & Abdominal Exam: Soft, Normal Bowel Sounds - Rectal Exam Rectal Exam: NORMAL INSPECTION - Exam External exam: NORMAL EXTERNAL EXAM - Extremities Exam Extremities Exam: Full ROM, Normal Capillary Refill, Normal Inspection - Back Exam Back Exam: NORMAL INSPECTION - Neurological Exam Neurological Exam: Alert Neuro motor strength exam: Right Upper Extremity: 3 - Psychiatric Exam Psychiatric exam: Normal Affect - Skin Skin Exam: Dry, Normal Color Assessment and Plan (1) Status post total right knee replacement Assessment & Plan: patient with knee immobilizer in bed, on CPM as well, continue with physical, occupational therapy Status: Acute (2) Anemia Status: Acute (3) Degenerative arthritis of right knee Status: Acute (4) History of gout Status: Acute (5) Status post total left knee replacement Status: Acute
[2018-08-13] MEDS: Insulin Lispro (humaLOG) 100 Units/ml Inj SC SCH ×4 (06:36→21:39)
[2018-08-13] MEDS: Enoxaparin 40 mg Syringe SC SCH (08:40)
[2018-08-13] MEDS: Lactobacillus Acidophilus 500 MU Cap PO SCH ×2 (08:40→18:11)
[2018-08-13] MEDS: Oxycodone/Acetaminophen 5/325 mg Tab PO PRN ×2 (09:58→18:09)
--- NOTE | 2018-08-13 17:00 | CP.PCM.PN ---
Subjective - Date & Time of Evaluation Date of Evaluation: 08/13/18 Time of Evaluation: 14:40 - Subjective Subjective: Patient seen and examined. Denied any complaint. Objective - Vital Signs/Intake and Output Vital Signs (last 24 hours): Temp Pulse Resp BP Pulse Ox 97.7 F 93 H 20 141/71 100 08/13/18 16:32 08/13/18 16:32 08/13/18 16:32 08/13/18 16:32 08/13/18 16:32 - Medications Medications: Current Medications Allopurinol (Zyloprim) 150 mg PO DAILY [facility] Last Admin: 08/13/18 08:41 Dose: 150 mg Aspirin (Ecotrin) 81 mg PO DAILY [facility] Last Admin: 08/13/18 08:40 Dose: 81 mg Docusate Sodium (Colace) 100 mg PO BID [facility] Last Admin: 08/13/18 08:40 Dose: 100 mg Enoxaparin Sodium (Lovenox) 40 mg SC DAILY [facility]; Protocol Last Admin: 08/13/18 08:40 Dose: 40 mg Ergocalciferol (Drisdol 50,000 Intl Units Cap) 1 cap PO QWK [facility] Fenofibrate (Tricor) 48 mg PO DAILY [facility] Last Admin: 08/13/18 08:41 Dose: 48 mg Insulin Human Lispro (Humalog) 0 units SC [facility]; Protocol Last Admin: 08/13/18 11:19 Dose: Not Given Lactobacillus Acidophilus (Bacid Acidophilus) 1 cap PO BID [facility] Last Admin: 08/13/18 08:40 Dose: 1 cap Metformin HCl (Glucophage) 500 mg PO DAILY@0800 [facility] Last Admin: 08/13/18 08:40 Dose: 500 mg Oxycodone/Acetaminophen (Percocet 5/325 Mg Tab) 1 tab PO Q6 PRN PRN Reason: Pain, moderate (4-7) Stop: 08/14/18 09:10 Last Admin: 08/13/18 09:58 Dose: 1 tab Oxycodone/Acetaminophen (Percocet 5/325 Mg Tab) 2 tab PO Q6 PRN PRN Reason: Pain, severe (8-10) Stop: 08/14/18 09:11 - Labs Labs: 08/10/18 12:45 08/08/18 05:30 - Constitutional Appears: No Acute Distress - Head Exam Head Exam: ATRAUMATIC - Eye Exam Eye Exam: absent: Scleral icterus - ENT Exam ENT Exam: Mucous Membranes Moist - Neck Exam Neck Exam: absent: Meningismus - Respiratory Exam Respiratory Exam: absent: Rales, Rhonchi, Wheezes, Respiratory Distress - Cardiovascular Exam Cardiovascular Exam: REGULAR RHYTHM, +S1, +S2 - GI/Abdominal Exam GI & Abdominal Exam: Soft. absent: Tenderness - Rectal Exam Rectal Exam: Deferred - Extremities Exam Extremities Exam: absent: Full ROM (limited ROM on right knee) - Neurological Exam Neurological Exam: Alert, Oriented x3 - Psychiatric Exam Psychiatric exam: Normal Affect - Skin Skin Exam: Dry, Intact Assessment and Plan - Assessment and Plan (Free Text) Assessment: 72 yo female with history of HTN, DM2, Ovarian Ca (post hysterectomy/oophorectomy), Left Breast Ca (post mastectomy) and S/P right TKR on 08/06/18 at [facility] was transferred to TCU on 08/07/18 for therapy. 1. Blood Loss Anemia received 2 units of PRBC in the ER resolved 2. Osteoarthritis of right knee s/p right TKR continue PT/OT and pain management 3. DM II BS controlled Metformin 500mg PO daily accucheck ACHS 4. Spinal Stenosis continue pain management 5. Gout on Allopurinol
[2018-08-14 06:55] LABS: BASO # 0.1 K/uL (0.0-0.2); BASO % 0.6 % (0.0-2.0); EOS # 0.5 K/uL (0.0-0.7); LYMPH # 2.3 K/uL (1.0-4.3); LYMPH % 21.3 % (20.0-40.0); MEAN CELL VOLUME 92.7 fl (81.0-99.0); MEAN CORPUSCULAR HEMOGLOBIN 30.5 pg (27.0-31.0); MEAN CORPUSCULAR HGB CONC 32.9 g/dL (33.0-37.0); MEAN PLATELET VOLUME 8.6 fl (7.2-11.7); MONO % 8.9 % (0.0-10.0); NEUT # 6.9 K/uL (1.8-7.0); NEUT % 64.2 % (50.0-75.0); RBC 3.61 Mil/uL (3.80-5.20); RED CELL DISTRIBUTION WIDTH 13.9 % (11.5-14.5); WHITE BLOOD COUNT 10.7 K/uL (4.8-10.8)
[2018-08-14 07:05] LABS: CALCIUM 8.9 mg/dL (8.4-10.2)
[2018-08-14] MEDS: Insulin Lispro (humaLOG) 100 Units/ml Inj SC SCH ×4 (07:29→21:48)
[2018-08-14] MEDS: Lactobacillus Acidophilus 500 MU Cap PO SCH ×2 (08:24→16:56)
[2018-08-14] MEDS: Oxycodone/Acetaminophen 5/325 mg Tab PO PRN ×2 (08:25→17:05)
--- NOTE | 2018-08-14 11:53 | CP.PCM.PN ---
Subjective - Date & Time of Evaluation Date of Evaluation: 08/13/18 Time of Evaluation: 19:10 - Subjective Subjective: no acute complaints at present Objective - Vital Signs/Intake and Output Vital Signs (last 24 hours): Temp Pulse Resp BP Pulse Ox 97.7 F 85 20 125/67 99 08/14/18 08:18 08/14/18 08:18 08/14/18 08:18 08/14/18 08:18 08/14/18 08:18 - Medications Medications: Current Medications Allopurinol (Zyloprim) 150 mg PO DAILY [facility] Last Admin: 08/14/18 08:24 Dose: 150 mg Aspirin (Ecotrin) 81 mg PO DAILY [facility] Last Admin: 08/14/18 08:24 Dose: 81 mg Docusate Sodium (Colace) 100 mg PO BID [facility] Last Admin: 08/14/18 08:24 Dose: 100 mg Enoxaparin Sodium (Lovenox) 40 mg SC DAILY [facility]; Protocol Ergocalciferol (Drisdol 50,000 Intl Units Cap) 1 cap PO QWK [facility] Fenofibrate (Tricor) 48 mg PO DAILY [facility] Last Admin: 08/14/18 08:24 Dose: 48 mg Insulin Human Lispro (Humalog) 0 units SC [facility]; Protocol Last Admin: 08/14/18 11:44 Dose: Not Given Lactobacillus Acidophilus (Bacid Acidophilus) 1 cap PO BID [facility] Last Admin: 08/14/18 08:24 Dose: 1 cap Metformin HCl (Glucophage) 500 mg PO DAILY@0800 [facility] Last Admin: 08/14/18 08:25 Dose: 500 mg - Labs Labs: 08/14/18 06:20 08/14/18 06:20 - Head Exam Head Exam: ATRAUMATIC, NORMAL INSPECTION, NORMOCEPHALIC - Eye Exam Eye Exam: EOMI, Normal appearance, PERRL Pupil Exam: NORMAL ACCOMODATION - ENT Exam ENT Exam: Mucous Membranes Moist, Normal Exam - Neck Exam Neck Exam: Full ROM, Normal Inspection - Respiratory Exam Respiratory Exam: NORMAL BREATHING PATTERN - Cardiovascular Exam Cardiovascular Exam: REGULAR RHYTHM - GI/Abdominal Exam GI & Abdominal Exam: Soft, Normal Bowel Sounds - Rectal Exam Rectal Exam: NORMAL INSPECTION - Exam External exam: NORMAL EXTERNAL EXAM - Extremities Exam Extremities Exam: Full ROM, Normal Capillary Refill - Back Exam Back Exam: NORMAL INSPECTION - Neurological Exam Neurological Exam: Alert, Awake Neuro motor strength exam: Right Lower Extremity: 3 - Psychiatric Exam Psychiatric exam: Normal Affect, Normal Mood - Skin Skin Exam: Dry, Intact Assessment and Plan (1) Status post total right knee replacement Assessment & Plan: to continue with physical, occupational therapy Status: Acute (2) Anemia Status: Acute (3) Degenerative arthritis of right knee Status: Acute (4) History of gout Status: Acute (5) Status post total left knee replacement Status: Acute
--- NOTE | 2018-08-14 11:56 | CP.PCM.PN ---
Subjective - Date & Time of Evaluation Date of Evaluation: 08/14/18 Time of Evaluation: 11:30 - Subjective Subjective: no acute complaints at present Objective - Vital Signs/Intake and Output Vital Signs (last 24 hours): Temp Pulse Resp BP Pulse Ox 97.7 F 85 20 125/67 99 08/14/18 08:18 08/14/18 08:18 08/14/18 08:18 08/14/18 08:18 08/14/18 08:18 - Medications Medications: Current Medications Allopurinol (Zyloprim) 150 mg PO DAILY [facility] Last Admin: 08/14/18 08:24 Dose: 150 mg Aspirin (Ecotrin) 81 mg PO DAILY [facility] Last Admin: 08/14/18 08:24 Dose: 81 mg Docusate Sodium (Colace) 100 mg PO BID [facility] Last Admin: 08/14/18 08:24 Dose: 100 mg Enoxaparin Sodium (Lovenox) 40 mg SC DAILY [facility]; Protocol Ergocalciferol (Drisdol 50,000 Intl Units Cap) 1 cap PO QWK [facility] Fenofibrate (Tricor) 48 mg PO DAILY [facility] Last Admin: 08/14/18 08:24 Dose: 48 mg Insulin Human Lispro (Humalog) 0 units SC [facility]; Protocol Last Admin: 08/14/18 11:44 Dose: Not Given Lactobacillus Acidophilus (Bacid Acidophilus) 1 cap PO BID [facility] Last Admin: 08/14/18 08:24 Dose: 1 cap Metformin HCl (Glucophage) 500 mg PO DAILY@0800 [facility] Last Admin: 08/14/18 08:25 Dose: 500 mg - Labs Labs: 08/14/18 06:20 08/14/18 06:20 - Head Exam Head Exam: ATRAUMATIC, NORMAL INSPECTION, NORMOCEPHALIC - Eye Exam Eye Exam: EOMI, Normal appearance, PERRL Pupil Exam: NORMAL ACCOMODATION - ENT Exam ENT Exam: Mucous Membranes Moist, Normal Exam - Neck Exam Neck Exam: Full ROM, Normal Inspection - Respiratory Exam Respiratory Exam: Clear to Ausculation Bilateral, NORMAL BREATHING PATTERN - Cardiovascular Exam Cardiovascular Exam: REGULAR RHYTHM - GI/Abdominal Exam GI & Abdominal Exam: Soft, Normal Bowel Sounds - Rectal Exam Rectal Exam: NORMAL INSPECTION - Exam External exam: NORMAL EXTERNAL EXAM - Extremities Exam Extremities Exam: Full ROM, Normal Capillary Refill, Normal Inspection - Back Exam Back Exam: NORMAL INSPECTION - Neurological Exam Neurological Exam: Alert, Awake Neuro motor strength exam: Right Lower Extremity: 3 - Psychiatric Exam Psychiatric exam: Normal Affect, Normal Mood - Skin Skin Exam: Dry Assessment and Plan (1) Status post total right knee replacement Assessment & Plan: plan for range of motion, strengthening, transfers and gait training, monitor skin and pain Status: Acute (2) Anemia Status: Acute (3) Degenerative arthritis of right knee Status: Acute (4) History of gout Status: Acute (5) Status post total left knee replacement Status: Acute
--- NOTE | 2018-08-14 12:59 | CP.PCM.PN ---
Subjective - Date & Time of Evaluation Date of Evaluation: 08/14/18 Time of Evaluation: 12:56 - Subjective Subjective: Patient progressing well. No new complaints. Objective - Vital Signs/Intake and Output Vital Signs (last 24 hours): Temp Pulse Resp BP Pulse Ox 97.7 F 85 20 125/67 99 08/14/18 08:18 08/14/18 08:18 08/14/18 08:18 08/14/18 08:18 08/14/18 08:18 - Medications Medications: Current Medications Allopurinol (Zyloprim) 150 mg PO DAILY [facility] Last Admin: 08/14/18 08:24 Dose: 150 mg Aspirin (Ecotrin) 81 mg PO DAILY [facility] Last Admin: 08/14/18 08:24 Dose: 81 mg Docusate Sodium (Colace) 100 mg PO BID [facility] Last Admin: 08/14/18 08:24 Dose: 100 mg Enoxaparin Sodium (Lovenox) 40 mg SC DAILY [facility]; Protocol Ergocalciferol (Drisdol 50,000 Intl Units Cap) 1 cap PO QWK [facility] Fenofibrate (Tricor) 48 mg PO DAILY [facility] Last Admin: 08/14/18 08:24 Dose: 48 mg Insulin Human Lispro (Humalog) [address] [facility]; Protocol Last Admin: 08/14/18 11:44 Dose: Not Given Lactobacillus Acidophilus (Bacid Acidophilus) 1 cap PO BID [facility] Last Admin: 08/14/18 08:24 Dose: 1 cap Metformin HCl (Glucophage) 500 mg PO DAILY@0800 [facility] Last Admin: 08/14/18 08:25 Dose: 500 mg - Labs Labs: 08/14/18 06:20 08/14/18 06:20 - Extremities Exam Additional comments: incision intact, dry, dressing changed. mildly swollen. No erythema, continued ecchymosis, mild. +ROM ankle/toes, sensation intact. calves soft NT neg homans Assessment and Plan (1) Status post total right knee replacement Assessment & Plan: ortho stable for d/c home tomorrow cont lovenox f/u Dr. Hurd as scheduled knee immob with ambulation per Dr. Mcclain d/w Dr. Hurd, agrees with above Status: Acute
[2018-08-14 15:47] VITALS: O2SAT 100
[2018-08-15] MEDS: Insulin Lispro (humaLOG) 100 Units/ml Inj SC SCH ×2 (06:51→11:40)
[2018-08-15 08:12] VITALS: BP 120/64; PULSE 82; TEMP 98.1
[2018-08-15] MEDS: Oxycodone/Acetaminophen 5/325 mg Tab PO PRN ×2 (08:35→12:19)
[2018-08-15] MEDS: Lactobacillus Acidophilus 500 MU Cap PO SCH (08:35)
[2018-08-15] MEDS ORDERED: Enoxaparin 40 mg Syringe SC SCH (09:00)
--- NOTE | 2018-08-15 09:58 | CP.PCM.DIS ---
Provider - Provider Date of Admission: 08/07/18 20:44 Attending physician: Allyn Vidales MD Primary care physician: Wilver Casillas MD Consults: Dr Merchant Time Spent in preparation of Discharge (in minutes): 25 Diagnosis - Discharge Diagnosis (1) Status post total right knee replacement Status: Acute Comment: did well with PT. continue PT at home. continue Percocet for pain as needed (2) Anemia Status: Acute Comment: stable. received 2 units of PRBC (3) DM2 (diabetes mellitus, type 2) Status: Chronic Comment: BS controlled. continue Metformin 500mg PO BID (4) History of gout Status: Acute Comment: continue Allopurinol Hospital Course - Lab Results Lab Results: Most Recent Lab Values WBC 10.7 K/uL (4.8-10.8) 08/14/18 06:20 RBC 3.61 Mil/uL (3.80-5.20) L 08/14/18 06:20 Hgb 11.0 g/dL (12.0-16.0) L 08/14/18 06:20 Hct 33.5 % (34.0-47.0) L 08/14/18 06:20 MCV 92.7 fl (81.0-99.0) 08/14/18 06:20 MCH 30.5 pg (27.0-31.0) 08/14/18 06:20 MCHC 32.9 g/dL (33.0-37.0) L 08/14/18 06:20 RDW 13.9 % (11.5-14.5) 08/14/18 06:20 Plt Count 365 K/uL (130-400) D 08/14/18 06:20 MPV 8.6 fl (7.2-11.7) 08/14/18 06:20 Neut % (Auto) 64.2 % (50.0-75.0) 08/14/18 06:20 Lymph % (Auto) 21.3 % (20.0-40.0) 08/14/18 06:20 [place] % (Auto) 8.9 % (0.0-10.0) 08/14/18 06:20 Eos % (Auto) 5.0 % (0.0-4.0) H 08/14/18 06:20 Baso % (Auto) 0.6 % (0.0-2.0) 08/14/18 06:20 Neut # (Auto) 6.9 K/uL (1.8-7.0) 08/14/18 06:20 Lymph # (Auto) 2.3 K/uL (1.0-4.3) 08/14/18 06:20 [place] # (Auto) 1.0 K/uL (0.0-0.8) H 08/14/18 06:20 Eos # (Auto) 0.5 K/uL (0.0-0.7) 08/14/18 06:20 Baso # (Auto) 0.1 K/uL (0.0-0.2) 08/14/18 06:20 Sodium 140 mmol/l (132-148) 08/14/18 06:20 Potassium 4.4 MMOL/L (3.6-5.0) 08/14/18 06:20 Chloride 104 mmol/L (98-107) 08/14/18 06:20 Carbon Dioxide 28 mmol/L (22-30) 08/14/18 06:20 Anion Gap 12 (10-20) 08/14/18 06:20 BUN 28 mg/dl (7-17) H 08/14/18 06:20 Creatinine 1.1 mg/dl (0.7-1.2) 08/14/18 06:20 Est GFR ( Amer) 59 08/14/18 06:20 Est GFR (Non-Af Amer) 48 08/14/18 06:20 POC Glucose (mg/dL) 110 mg/dL (65-110) 08/14/18 20:49 Random Glucose 126 mg/dL (65-105) H 08/14/18 06:20 Calcium 8.9 mg/dL (8.4-10.2) 08/14/18 06:20 Phosphorus 2.7 mg/dl (2.5-4.5) 08/08/18 05:30 Magnesium 1.9 MG/DL (1.6-2.3) 08/08/18 05:30 Total Bilirubin 0.5 mg/dl (0.2-1.3) 08/08/18 05:30 AST 101 U/L (14-36) H D 08/08/18 05:30 ALT 27 U/L (9-52) 08/08/18 05:30 Alkaline Phosphatase 65 U/L (38-126) 08/08/18 05:30 Total Protein 6.1 G/DL (6.3-8.2) L 08/08/18 05:30 Albumin 3.0 g/dL (3.5-5.0) L 08/08/18 05:30 Globulin 3.0 gm/dL (2.2-3.9) 08/08/18 05:30 Albumin/Globulin Ratio 1.0 (1.0-2.1) 08/08/18 05:30 Blood Type O POSITIVE 08/09/18 13:44 Antibody Screen Negative 08/09/18 13:44 Crossmatch See Detail 08/09/18 13:44 BBK History Checked Patient has bt 08/09/18 13:44 - Hospital Course Hospital Course: 72 yo female with history of HTN, DM2, Ovarian Ca (post hysterectomy/oophorectomy), Left Breast Ca (post mastectomy) and S/P right TKR on 08/06/18 at [facility] was transferred to TCU on 08/07/18 for therapy. Patient did well with therapy and now is ready for discharge. Discharge Exam - Head Exam Head Exam: ATRAUMATIC, NORMAL INSPECTION, NORMOCEPHALIC - Eye Exam Eye Exam: absent: Scleral icterus - ENT Exam ENT Exam: Mucous Membranes Moist - Respiratory Exam Respiratory Exam: absent: Rales, Rhonchi, Wheezes, Respiratory Distress - Cardiovascular Exam Cardiovascular Exam: REGULAR RHYTHM, +S1, +S2 - GI/Abdominal Exam GI & Abdominal Exam: Soft. absent: Tenderness - Rectal Exam Rectal Exam: Deferred - Neurological Exam Neurological exam: Alert, Oriented x3 - Psychiatric Exam Psychiatric exam: Normal Affect - Skin Skin Exam: Dry, Intact Discharge Plan - Follow Up Plan Condition: GOOD Disposition: Trans to Other Acute Care Hosp Instructions: Total Knee Replacement (DC), Preventing Falls, Postop Total Knee Replacement Exercises Lying Down, Postop Total Knee Replacement Exercises Seated or Standing Additional Instructions: FOLLOW UP WITH DR. EID ON AUGUST 18 IN THE OFFICE AT 10 AM. DO NOT REMOVE DRESSING UNTIL OFFICE VISIT. IF YOU HAVE A FEVER OR SEVERE PAIN PLEASE GO TO EMERGENCY ROOM. TOE TOUCH WEIGHT BEARING PER MD ORDERS. KNEE IMMOBILIZER UNTIL FURTHER NOTICE FROM MD. ICE NEEDED FOR PAIN Referrals: Wilver Casillas MD [Primary Care Provider] - Bonny Eid MD [Staff Provider] - Golden Castañeda MD [Staff Provider] -
== END 2018-08-15 13:00 | disposition home or self-care (01) | DRG 561 ==
LOC: H.TCU 20:44
PROVIDERS: ADMIT Hospitalist; ATTEND Hospitalist
PROC: F08Z4FZ Home Management Treatment using Assistive, Adaptive, Supportive or Protective Equipment (ICD-10-PCS; principal; 2018-08-08)
PROC: F07M6FZ Therapeutic Exercise Treatment of Musculoskeletal System - Whole Body using Assistive, Adaptive, Supportive or Protective Equipment (ICD-10-PCS; 2018-08-08)
PROC: 30233N1 Transfusion of Nonautologous Red Blood Cells into Peripheral Vein, Percutaneous Approach (ICD-10-PCS; 2018-08-09)
DX: Z47.1 Aftercare following joint replacement surgery (principal); Z96.653 Presence of artificial knee joint, bilateral; H26.9 Unspecified cataract; K57.90 Diverticulosis of intestine, part unspecified, without perforation or abscess without bleeding; K82.9 Disease of gallbladder, unspecified; M19.90 Unspecified osteoarthritis, unspecified site; D50.0 Iron deficiency anemia secondary to blood loss (chronic); E11.9 Type 2 diabetes mellitus without complications; E78.00 Pure hypercholesterolemia, unspecified; I10 Essential (primary) hypertension; M10.9 Gout, unspecified; M17.11 Unilateral primary osteoarthritis, right knee; M48.00 Spinal stenosis, site unspecified; Z79.84 Long term (current) use of oral hypoglycemic drugs; Z82.3 Family history of stroke; Z82.49 Family history of ischemic heart disease and other diseases of the circulatory system; Z85.3 Personal history of malignant neoplasm of breast; Z85.43 Personal history of malignant neoplasm of ovary; Z87.440 Personal history of urinary (tract) infections; Z90.13 Acquired absence of bilateral breasts and nipples; Z90.49 Acquired absence of other specified parts of digestive tract; Z90.710 Acquired absence of both cervix and uterus

== ENCOUNTER 2018-08-09 14:25 | Observation (INO) | payer MEDICARE ==
[2018-08-09 14:27] VITALS: BMI 25.8
--- NOTE | 2018-08-09 15:01 | ED PDOC ---
HPI: General Adult Time Seen by Provider: 08/09/18 14:38 Chief Complaint (Nursing): Abnormal Labs Chief Complaint (Provider): sent for anemia History Per: Patient, Other (prior records) History/Exam Limitations: no limitations Onset/Duration Of Symptoms: Gradual Severity: Moderate Recently: Hospitalized Additional Complaint(s): 72yo female POD 5 from R knee replacement at [facility] by Dr Bess, sent from TCU for anemia Hgb 6.8, been trending down over several days. She denies gross blood per rectum, hematemesis, hematuria or abdominal pain. Denies SOB, chest pain or headache. Has resting tachycardia but denies dizziness, although has not exerted self. Past Medical History Reviewed: Historical Data, Nursing Documentation, Vital Signs Vital Signs: Last Vital Signs Temp 98.8 F 08/09/18 14:38 Pulse 97 H 08/09/18 14:38 Resp 16 08/09/18 14:38 BP 120/52 L 08/09/18 14:38 Pulse Ox 98 08/09/18 14:38 - Medical History PMH: Arthritis, Colonic Polyps, Gall Bladder Disease, HTN, Hypercholesterolemia Denies: HIV, Chronic Kidney Disease - Surgical History Surgical History: Cholecystectomy - Family History Family History: States: Unknown Family Hx - Social History Current smoker - smoking cessation education provided: No - Home Medications Home Medications: Ambulatory Orders Medication Instructions Recorded metFORMIN [glucOPHAGE] 500 mg PO DAILY #30 tab 11/15/17 Allopurinol [Zyloprim] 150 mg PO DAILY 07/29/18 Ergocalciferol (Vitamin D2) 50,000 unit PO QWK 07/29/18 [Vitamin D2] Fenofibrate [Tricor] 48 mg PO DAILY 07/29/18 Docusate [Colace] 100 mg PO BID cap 08/07/18 Enoxaparin [Lovenox] 40 mg SC Q24H #30 syr 08/07/18 Ergocalciferol [Drisdol 50,000 1 cap PO QWK cap 08/07/18 Intl Units Cap] Lactobacillus Acidophilus [Bacid 1 cap PO BID cap 08/07/18 Acidophilus] oxyCODONE/Acetaminophen [Percocet 1 tab PO Q6H PRN #48 tab 08/07/18 5/325 mg Tab] Acetaminophen [Tylenol 325mg tab] 650 mg pe PO ONCE 08/09/18 Aspirin [Ecotrin] 81 mg PO DAILY 08/09/18 Insulin Lispro [Humalog (Insulin See Protocol SQ ACHS 08/09/18 Lispro)] - Allergies Allergies/Adverse Reactions: Allergies Allergy/AdvReac Type Severity Reaction Status Date / Time No Known Allergies Allergy Verified 08/18/17 07:39 Review of Systems Constitutional: Negative for: Fever ENT: Negative for: Nose Discharge Cardiovascular: Positive for: Palpitations. Negative for: Chest Pain Respiratory: Negative for: Shortness of Breath Gastrointestinal: Negative for: Abdominal Pain, Melena, Hematochezia, Hematemesis Genitourinary Female: Negative for: Frequency Musculoskeletal: Negative for: Neck Pain, Back Pain Skin: Negative for: Rash Neurological: Negative for: Weakness, Numbness Physical Exam - Reviewed Nursing Documentation Reviewed: Yes Vital Signs Reviewed: Yes - Physical Exam Appears: Positive for: Well, Non-toxic, No Acute Distress Head Exam: Positive for: ATRAUMATIC, NORMAL INSPECTION, NORMOCEPHALIC Skin: Positive for: Normal Color, Warm, DRY Eye Exam: Positive for: EOMI, Normal appearance, PERRL ENT: Positive for: Normal ENT Inspection Neck: Positive for: Normal, Painless ROM Cardiovascular/Chest: Positive for: Tachycardia Respiratory: Positive for: CNT, Normal Breath Sounds Pulses-Radial (L): 2+ Pulses-Radial (R): 2+ Gastrointestinal/Abdominal: Positive for: Soft. Negative for: Tenderness Back: Positive for: Normal Inspection Extremity: Positive for: Other (R leg in immobilizer w LETY wrap toes pink and FROM) Neurologic/Psych: Positive for: Alert, Oriented. Negative for: Motor/Sensory Deficits - Laboratory Results Result Diagrams: 08/09/18 15:39 08/09/18 15:39 - ECG O2 Sat by Pulse Oximetry: 98 Medical Decision Making Medical Decision Making: stool occult blood neg repeat Hgb worsening now 6.5 pt consented for PRBC and [address] Matheus Bess made aware Disposition - Clinical Impression Clinical Impression: Anemia, Status post total left knee replacement - Patient ED Disposition Is Patient to be Admitted: Yes - Disposition Disposition Time: 15:30 Condition: STABLE
[2018-08-09 15:47] LABS: MEAN CELL VOLUME 92.6 fl (81.0-99.0); MEAN CORPUSCULAR HGB CONC 33.5 g/dL (33.0-37.0); RBC 2.1 Mil/uL (3.80-5.20); RED CELL DISTRIBUTION WIDTH 13.1 % (11.5-14.5); WHITE BLOOD COUNT 11.1 K/uL (4.8-10.8)
[2018-08-09 15:55] LABS: HEMOGLOBIN 6.5 g/dL (12.0-16.0)
--- NOTE | 2018-08-09 15:55 | CP.PCM.HP ---
History of Present Illness - History of Present Illness History of Present Illness: 72 yo female with history of HTN, DM2, Ovarian Ca (post hysterectomy/oophorectomy), Left Breast Ca (post mastectomy) and S/P right TKR on 08/06/18 at [facility] and was transferred to TCU on 08/07/18 for therapy was transferred to ER for blood transfusion because of dropping Hgb now down to 6.8. Denied abdominal pain, dizziness or bloody stools. Present on Admission - Present on Admission Any Indicators Present on Admission: No History of DVT/PE: No History of Uncontrolled Diabetes: No Urinary Catheter: No Decubitus Ulcer Present: No Review of Systems - Review of Systems All systems: reviewed and no additional remarkable complaints except (aside from those mentioned above, 12 point system review were negative by me) Past Patient History - Past Medical History & Family History Past Medical History?: Yes - Past Social History Smoking Status: Never Smoked Chewing Tobacco Use: No Cigar Use: No Alcohol: None Drugs: Denies - CARDIAC Hx Hypercholesterolemia: Yes Hx Hypertension: Yes - PULMONARY Hx Respiratory Disorders: No - NEUROLOGICAL Hx Neurological Disorder: No - HEENT Hx HEENT Problems: Yes Hx Cataracts: Yes (BILAT.) - RENAL Hx Chronic Kidney Disease: No - ENDOCRINE/METABOLIC Hx Diabetes Mellitus Type 2: Yes - HEMATOLOGICAL/ONCOLOGICAL Hx Human Immunodeficiency Virus (HIV): No - INTEGUMENTARY Hx Dermatological Problems: Yes - MUSCULOSKELETAL/RHEUMATOLOGICAL Hx Arthritis: Yes - GASTROINTESTINAL Hx Gall Bladder Disease: Yes - GENITOURINARY/GYNECOLOGICAL Hx Genitourinary Disorders: Yes Hx Ovarian Cancer: Yes Hx Urinary Tract Infection: Yes - PSYCHIATRIC Hx Psychophysiologic Disorder: No Hx Substance Use: No - SURGICAL HISTORY Hx Cholecystectomy: Yes - ANESTHESIA Hx Anesthesia: Yes Hx Anesthesia Reactions: No Hx Malignant Hyperthermia: No Meds Allergies/Adverse Reactions: Allergies Allergy/AdvReac Type Severity Reaction Status Date / Time No Known Allergies Allergy Verified 08/18/17 07:39 Physical Exam - Constitutional Appears: No Acute Distress - Head Exam Head Exam: ATRAUMATIC - Eye Exam Eye Exam: absent: Scleral icterus - ENT Exam ENT Exam: Mucous Membranes Moist - Neck Exam Neck exam: Negative for: Meningismus - Respiratory Exam Respiratory Exam: absent: Rales, Rhonchi, Wheezes, Respiratory Distress - Cardiovascular Exam Cardiovascular Exam: REGULAR RHYTHM, +S1, +S2 - GI/Abdominal Exam GI & Abdominal Exam: Soft. absent: Tenderness - Rectal Exam Rectal Exam: Deferred - Neurological Exam Neurological exam: Alert, Oriented x3 - Psychiatric Exam Psychiatric exam: Normal Affect - Skin Skin Exam: Dry, Intact Results - Vital Signs Recent Vital Signs: Last Vital Signs Temp 98.8 F 08/09/18 14:38 Pulse 97 H 08/09/18 14:38 Resp 16 08/09/18 14:38 BP 120/52 L 08/09/18 14:38 Pulse Ox 98 08/09/18 15:03 Assessment & Plan - Assessment and Plan (Free Text) Assessment: 72 yo female with history of HTN, DM2, Ovarian Ca (post hysterectomy/oophorectomy), Left Breast Ca (post mastectomy) and S/P right TKR on 08/06/18 at [facility] and was transferred to TCU on 08/07/18 for therapy was transferred to ER for blood transfusion because of dropping Hgb now down to 6.8. Denied abdominal pain, dizziness or bloody stools. 1. Blood Loss Anemia transfer to ER for blood transfusion 2. Osteoarthritis of Right knee s/p Right TKR Dr Julio Bueno orthopedic Pain management with Percocet OT/PT 3. DM II controlled BS controlled Metformin 500mg PO daily accucheck ACHS 4. Spinal Stenosis continue pain management 5. Gout on Allopurinol
[2018-08-09 16:22] LABS: CALCIUM 7.9 mg/dL (8.4-10.2)
[2018-08-10 03:16] LABS: BASO % 0.3 % (0.0-2.0); EOS # 0.3 K/uL (0.0-0.7); EOS % 3.4 % (0.0-4.0); LYMPH # 1.8 K/uL (1.0-4.3); LYMPH % 18.2 % (20.0-40.0); MEAN CELL VOLUME 91.8 fl (81.0-99.0); MEAN CORPUSCULAR HEMOGLOBIN 30.7 pg (27.0-31.0); MEAN CORPUSCULAR HGB CONC 33.4 g/dL (33.0-37.0); MEAN PLATELET VOLUME 8.7 fl (7.2-11.7); MONO % 10.1 % (0.0-10.0); NEUT # 6.6 K/uL (1.8-7.0); NRBC % 0.1 % (0.0-0.0); RBC 3.27 Mil/uL (3.80-5.20); RED CELL DISTRIBUTION WIDTH 13.8 % (11.5-14.5); WHITE BLOOD COUNT 9.6 K/uL (4.8-10.8)
[2018-08-10 03:36] VITALS: RESP 17
[2018-08-10 05:10] VITALS: BP 134/76; PULSE 94; TEMP 99.5; O2SAT 97
--- NOTE | 2018-08-10 14:49 | CARD ---
APPROVED REPORT Date of service: 08/09/2018 EKG Measurement Heart [id number] <Conclusion> Normal sinus rhythm Normal ECG
== END 2018-08-10 06:10 | disposition home or self-care (01) ==
LOC: H.ER 14:25 → H.ERHOLD 14:58
DX: D50.0 Iron deficiency anemia secondary to blood loss (chronic) (principal); Z98.890 Other specified postprocedural states; M17.11 Unilateral primary osteoarthritis, right knee; Z96.653 Presence of artificial knee joint, bilateral; E11.9 Type 2 diabetes mellitus without complications; I10 Essential (primary) hypertension; E78.00 Pure hypercholesterolemia, unspecified; M10.9 Gout, unspecified; M48.00 Spinal stenosis, site unspecified; Z87.440 Personal history of urinary (tract) infections; Z85.43 Personal history of malignant neoplasm of ovary; Z85.3 Personal history of malignant neoplasm of breast; Z79.84 Long term (current) use of oral hypoglycemic drugs; Z79.82 Long term (current) use of aspirin; Z90.49 Acquired absence of other specified parts of digestive tract; Z90.710 Acquired absence of both cervix and uterus; Z86.010 Personal history of colon polyps
CPT/HCPCS: 80048; 82948; 85025; 85027; 93005; 99285; G0328; G0378